=== PATIENT | male | born 1960 | race Caucasian/White ===

== ENCOUNTER → 2018-05-09 | Outpatient (CLI) | payer BC ==
[2018-05-09 08:34] LABS: HCT 50.9 % (39.0-53.0); HGB 16.2 gm/dL (13.0-17.5); MCH 32.3 pg (25.0-35.0); MCHC 31.9 g/dL (31.0-37.0); MCV 101.4 fL (80.0-100.0); Macrocytosis Slight; Mean Platelet Volume 7.2; Platelet Count 220 k/uL (150-450); RBC 5.02 m/uL (4.30-5.90); RDW 14.7 % (11.5-15.5); WBC 7.3 k/uL (3.8-10.6)
== END | disposition home or self-care (01) ==
LOC: LABPAT 08:02
PROVIDERS: ATTEND Anesthesiology
DX: Z01.812 Encounter for preprocedural laboratory examination (principal); K43.2 Incisional hernia without obstruction or gangrene
CPT/HCPCS: 36415; 85027

== ENCOUNTER 2018-05-10 21:01 | Emergency (ER) | payer BC ==
[2018-05-10 21:07] VITALS: RESP 18
--- NOTE | 2018-05-10 21:48 | ED ---
General Adult HPI - General Chief complaint: Urogenital Stated complaint: Abd pain Source: patient Mode of arrival: ambulatory Limitations: no limitations - History of Present Illness Initial comments: Dictation was produced using [employer] dictation software. please excuse any grammatical, word or spelling errors. Chief Complaint: 57-year-old male presents with urinary retention. History of Present Illness: Patient is a 57-year-old male with urinary retention. The last time he urinated was prior to surgery at this morning. Patient had umbilical hernia repair performed by Dr. Molina. After surgery he did not urinate. He was discharged and told to come to the emergency department if he does not void for 4-6 hours. Patient does have history of prostatic disease. He does have a urologist was Dr. Landry. It has any constitutional symptoms. The ROS documented in this emergency department record has been reviewed and confirmed by me. Those systems with pertinent positive or negative responses have been documented in the HPI. All other systems are other negative and/or noncontributory. - Related Data Home Medications Medication Instructions Recorded Confirmed ALPRAZolam [Xanax] 0.25 mg PO BID 08/11/14 05/10/18 Folic Acid 1 mg PO DAILY 08/11/14 05/10/18 Methotrexate Sodium [Methotrexate] 12.5 mg PO SCHNEIDER 09/12/14 05/10/18 Losartan [Cozaar] 25 mg PO HS 09/24/15 05/10/18 Atorvastatin [Lipitor] 20 mg PO HS 05/29/17 05/10/18 Tofacitinib Citrate [Xeljanz Xr] 11 mg PO DAILY 05/29/17 05/10/18 Metoprolol Tartrate 25 mg PO QAM 05/08/18 05/10/18 Tamsulosin [Flomax] 0.4 mg PO DAILY 05/08/18 05/10/18 Previous Rx's Medication Instructions Recorded Allopurinol [Zyloprim] 300 mg PO DAILY tab 08/16/14 Clopidogrel [Plavix] 75 mg PO DAILY #90 tab 02/03/16 Aspirin EC [Ecotrin Low Dose] 81 mg PO DAILY #30 tablet. 06/06/17 Hydrocodone/Acetaminophen [[place] 1 - 2 each PO Q4HR PRN #15 tab 05/10/18 5-325] Allergies Allergy/AdvReac Type Severity Reaction Status Date / Time No Known Allergies Allergy Verified 05/10/18 21:35 Review of Systems ROS Statement: Those systems with pertinent positive or pertinent negative responses have been documented in the HPI. ROS Other: All systems not noted in ROS Statement are negative. Past Medical History Past Medical History: Coronary Artery Disease (CAD), GERD/Reflux, Myocardial Infarction ([place]), Rheumatoid Arthritis ([place]), Sleep Apnea/CPAP/BIPAP, Vascular Disorder Additional Past Medical History / Comment(s): incisional hernia,gout, [place] x 3, varicose veins Last Myocardial Infarction Date:: 09/2014 History of Any Multi-Drug Resistant Organisms: None Reported Past Surgical History: Appendectomy, Bowel Resection, Coronary Bypass/CABG, Heart Catheterization, Hernia Repair Additional Past Surgical History / Comment(s): ABD. AORTOGRAM WITH MACKENZIE RUNOFF 01/07/16,Bilateral eye surgery for lazy eyes, CABG 08/2014 -4 vessel,02-01-17 stent to rt sfa Past Anesthesia/Blood Transfusion Reactions: Motion Sickness Additional Past Anesthesia/Blood Transfusion Reaction / Comment(s): unknown if had blood transfusion in past Past Psychological History: Anxiety Smoking Status: Former smoker - Past Family History Sister(s) Family Medical History: Cancer Additional Family Medical History / Comment(s): Patient has one sister with history of colon cancer Father Family Medical History: Cancer Additional Family Medical History / Comment(s): Father dad at age 73 with throat CA, heart problems, smoked and drank. Mother Family Medical History: Dementia Additional Family Medical History / Comment(s): Mother is alive at age 84 with history of atrial fibrillation, coronary artery disease, dementia, hypertension. Brother(s) Family Medical History: Pulmonary Embolus Additional Family Medical History / Comment(s): Patient has 2 brothers and one from Marfan's and one has diabetes. General Exam - General Exam Comments Initial Comments: PHYSICAL EXAM: General Impression: Alert and oriented x3, not in acute distress HEENT: Normocephalic atraumatic, extra-ocular movements intact, pupils equal and reactive to light bilaterally, mucous membranes moist. Cardiovascular: Heart regular rate and rhythm, S1&S2 audible, no murmurs, rubs or gallops Chest: Lungs clear to auscultation bilaterally, no rhonchi, no wheeze, no rales Abdomen: Bowel sounds present, abdomen soft, non-tender, non-distended, no organomegaly, tender in place, surgical sites clean dry and intact, suprapubic fullness Musculoskeletal: Pulses present and equal in all extremities, no peripheral edema Motor: Power 5/5 bilaterally, no focal deficits noted Neurological: CN II-XII grossly intact, no focal motor or sensory deficits noted Skin: Intact with no visualized rashes Psych: Normal affect and mood Limitations: no limitations Course Vital Signs 05/10/18 21:03 Temperature 98.9 F Pulse Rate 50 L Respiratory 18 Rate Blood Pressure 134/78 O2 Sat by Pulse 97 Oximetry Medical Decision Making - Medical Decision Making ED course: 57-year-old male presents with urinary retention postoperatively. Vital signs upon arrival are within acceptable limits. Bladder scan was performed showing 550 mL of urine. [place] catheter was placed without complications. Patient be discharged with outpatient referral to his urologist. Urine sent for culture and urinalysis. Disposition Clinical Impression: Urinary retention Disposition: HOME SELF-CARE Instructions: Urinary Retention in Men (ED) Is patient prescribed a controlled substance at d/c from ED?: No Referrals: Jean Claude Hernández MD [Primary Care Provider] - 1-2 days Quinton Holguin MD [STAFF PHYSICIAN] - 1-2 days Time of Disposition: 21:48
[2018-05-10 21:59] LABS: Appearance,Urine Clear (Clear); Bilirubin,Urine Negative (Negative); Blood,Urine Negative (Negative); Color,Urine Yellow; Glucose,Urine (UA) Negative (Negative); Ketones,Urine Negative (Negative); Leukocyte Esterase,Urine Negative (Negative); Nitrite,Urine Negative (Negative); Protein,Urine Negative (Negative); Specific Gravity,Urine 1.013 (1.001-1.035); Urobilinogen,Urine <2.0 mg/dL (<2.0)
[2018-05-10 22:00] VITALS: BP 130/78; PULSE 60; TEMP 98
== END 2018-05-10 22:01 | disposition home or self-care (01) ==
LOC: EC 21:01
DX: R33.9 Retention of urine, unspecified (principal); N99.89 Other postprocedural complications and disorders of genitourinary system; I25.10 Atherosclerotic heart disease of native coronary artery without angina pectoris; M06.9 Rheumatoid arthritis, unspecified; G47.30 Sleep apnea, unspecified; F41.9 Anxiety disorder, unspecified; I25.2 Old myocardial infarction; Z87.891 Personal history of nicotine dependence; Z79.899 Other long term (current) drug therapy; Z99.89 Dependence on other enabling machines and devices; Z90.49 Acquired absence of other specified parts of digestive tract; Z95.1 Presence of aortocoronary bypass graft
CPT/HCPCS: 51702; 81003; 87086; 99284

== ENCOUNTER → 2018-05-10 | Day surgery (SDC) | payer BC, MEDICARE ==
[2018-05-08 10:25] VITALS: BMI 31.2
[~2018-05-10] MED LIST: BUPIVACAIN-EPI 0.25%-1:200,000 30 ML VIAL SQ ONE; DEXAMETHASONE SOD PHOSPHATE 10 MG/ML 1 ML VIAL IV ONE; GLYCOPYRROLATE 0.2 MG/ML 2 ML VIAL ONE; HEPARIN SODIUM,PORCINE 5,000 UNIT/ML 1 ML VIAL SQ ONE; HYDROcodone/APAP 5-325MG 1 EACH TAB PO ONE; HYDROcodone/APAP 5-325MG 1 EACH TAB PO PRN; HYDROmorphone (PF) 1 MG/ML ONE; HYDROmorphone 1 MG/ML 1 ML SYRINGE IVP PRN; KETOROLAC 30 MG/ML 1 ML VIAL ONE; LACTATED RINGERS 1,000 ML IV ONE; LACTATED RINGERS 1,000 ML IV SCH; LIDOCAINE 1% 20 ML VIAL (10MG/ML) FOR IV START INTRADERMA ONE; LIDOCAINE 1% INJ 10MG/ML (20 ML MDV) ONE; MIDAZOLAM 2 MG/2 ML VIAL IV PRN; MIDAZOLAM 2 MG/2 ML VIAL ONE; NALOXONE 0.4 MG/ML 1 ML VIAL IV PRN; NEOSTIGMINE 1 MG/ML 10 ML VIAL ONE; ONDANSETRON 4 MG/2 ML VIAL IVP ONE; PROPOFOL 10 MG/ML 20 ML VIAL IV ONE; ROCURONIUM BROMIDE 10 MG/ML 10 ML VIAL IV ONE; SCOPOLAMINE 1.5MG/72HR PATCH TRANSDERM ONE; SUCCINYLCHOLINE CHLORIDE 100 MG/5 ML SYR IV ONE; TAMSULOSIN 0.4 MG CAP.ER.24H PO STA; ceFAZolin IN SWFI 2 GM/20 ML SYRINGE IVP ONE; fentaNYL (PF) 50 MCG/ML 2 ML AMP ONE
[2018-05-10 10:43] LABS: Potassium 4.3 mmol/L (3.5-5.1)
--- NOTE | 2018-05-10 12:42 | P.GSHP ---
History of Present Illness H&P Date: 05/10/18 Chief Complaint: Incisional hernia 57-year-old male known to our service. Patient has a hernia present at the umbilicus and also in the infra umbilical location. Complaining of pain in that area. No nausea or vomiting. No change in bowel habits. Past Medical History Past Medical History: Coronary Artery Disease (CAD), GERD/Reflux, Myocardial Infarction ([place]), Rheumatoid Arthritis ([place]), Sleep Apnea/CPAP/BIPAP, Vascular Disorder Additional Past Medical History / Comment(s): incisional hernia,gout, [place] x 3, varicose veins, SOB on exertion,pad,small bowel "choked" r/t scar tissue 2016, uses cpap Last Myocardial Infarction Date:: 09/2014 History of Any Multi-Drug Resistant Organisms: None Reported Past Surgical History: Appendectomy, Bowel Resection, Coronary Bypass/CABG, Heart Catheterization Additional Past Surgical History / Comment(s): ABD. AORTOGRAM WITH MACKENZIE RUNOFF 01/07/16,Bilateral eye surgery for lazy eyes, CABG 08/2014 -4 vessel,02-01-17 stent to rt sfa Past Anesthesia/Blood Transfusion Reactions: Motion Sickness Additional Past Anesthesia/Blood Transfusion Reaction / Comment(s): unknown if had blood transfusion in past Smoking Status: Former smoker - Past Family History Sister(s) Family Medical History: Cancer Additional Family Medical History / Comment(s): Patient has one sister with history of colon cancer Father Family Medical History: Cancer Additional Family Medical History / Comment(s): Father dad at age 73 with throat CA, heart problems, smoked and drank. Mother Family Medical History: Dementia Additional Family Medical History / Comment(s): Mother is alive at age 84 with history of atrial fibrillation, coronary artery disease, dementia, hypertension. Brother(s) Family Medical History: Pulmonary Embolus Additional Family Medical History / Comment(s): Patient has 2 brothers and one from Marfan's and one has diabetes. Medications and Allergies Home Medications Medication Instructions Recorded Confirmed Type ALPRAZolam [Xanax] 0.25 mg PO BID 08/11/14 05/10/18 History Folic Acid 1 mg PO DAILY 08/11/14 05/10/18 History Allopurinol [Zyloprim] 300 mg PO DAILY tab 08/16/14 05/10/18 Rx Methotrexate Sodium [Methotrexate] 12.5 mg PO SCHNEIDER 09/12/14 05/10/18 History Losartan [Cozaar] 25 mg PO HS 09/24/15 05/10/18 History Clopidogrel [Plavix] 75 mg PO DAILY #90 tab 02/03/16 05/10/18 Rx Atorvastatin [Lipitor] 40 mg PO HS 05/29/17 05/10/18 History Tofacitinib Citrate [Xeljanz Xr] 11 mg PO DAILY 05/29/17 05/10/18 History Aspirin EC [Ecotrin Low Dose] 81 mg PO DAILY #30 tablet. 06/06/17 05/10/18 Rx Metoprolol Tartrate 25 mg PO QAM 05/08/18 05/10/18 History Tamsulosin [Flomax] 0.4 mg PO DAILY 05/08/18 05/10/18 History Allergies Allergy/AdvReac Type Severity Reaction Status Date / Time No Known Allergies Allergy Verified 05/10/18 10:11 Surgical - Exam Vital Signs Temp Pulse Resp BP Pulse Ox 96.9 F L 50 L 16 121/69 96 05/10/18 10:20 05/10/18 10:20 05/10/18 10:20 05/10/18 10:20 05/10/18 10:20 Multiple fascial defects along the midline incision. Mildly tender. Reducible. Results - Labs 05/10/18 10:20 Abnormal Lab Results - Last 24 Hours (Table) 05/10/18 Range/Units 10:20 Chloride 109 H (98-107) mmol/L Diabetes panel 05/10/18 Range/Units 10:20 Sodium 142 (137-145) mmol/L Potassium 4.3 (3.5-5.1) mmol/L Chloride 109 H (98-107) mmol/L Carbon Dioxide 27 (22-30) mmol/L Pituitary panel 05/10/18 Range/Units 10:20 Sodium 142 (137-145) mmol/L Potassium 4.3 (3.5-5.1) mmol/L Chloride 109 H (98-107) mmol/L Carbon Dioxide 27 (22-30) mmol/L Adrenal panel 05/10/18 Range/Units 10:20 Sodium 142 (137-145) mmol/L Potassium 4.3 (3.5-5.1) mmol/L Chloride 109 H (98-107) mmol/L Carbon Dioxide 27 (22-30) mmol/L Assessment and Plan (1) Incisional hernia Narrative/Plan: Will proceed with laparoscopic repair incisional hernia with mesh. Possible open procedure. Risks of bleeding, infection, recurrence, bladder and bowel injury, numbness, nerve injury, conversion to an open procedure were discussed with the patient. The patient understands and wishes to proceed. Current Visit: Yes Status: Acute Code(s): K43.2 - INCISIONAL HERNIA WITHOUT OBSTRUCTION OR GANGRENE SNOMED Code(s): 853830092
[2018-05-10 15:10] VITALS: TEMP 98.1
[2018-05-10 15:11] VITALS: RESP 16
--- NOTE | 2018-05-10 15:35 | P.OP ---
Date of Procedure: 05/10/18 Procedure(s) Performed: PREOPERATIVE DIAGNOSIS: Reducible incisional hernia POSTOPERATIVE DIAGNOSIS: Same PROCEDURE: Laparoscopic repair incisional hernia with [place] robotic assistance with mesh, laparoscopic extensive lysis of adhesions SURGEON: Tracy EBL: Al Arreguin ANESTHESIA: Gen. COMPLICATIONS: None OPERATIVE PROCEDURE: Patient was placed on the operating room table in the supine position. Patient was then placed under general anesthesia. The abdomen was prepped and draped in usual sterile fashion. A 5 mm optical trocar was used to enter the abdominal cavity in the left subcostal location and laterally. Insufflation took place fully to 15 mm of mercury. At that point a 12 mm trocar was placed laterally in the mid abdomen. An 8 mm trocar was placed in the left lower quadrant. The initial 5 was then switched to an 8 mm trocar as well. All of these were placed under direct visualization. The trochars were placed so that the neutral center of the trocar was within the abdominal wall. The da Fanta robot was then docked after placing the patient in a slight right decubitus position. I then left the bedside and moved to the da Fanta console. The patient's hernia was inspected. In this particular case the patient had extensive adhesions between the small bowel, omentum, and the abdominal wall. Painstaking extensive lysis of adhesions took place using the laparoscopic aide. No evidence of iatrogenic serosal tears were seen during this dissection. Once the fascia was visualized it was noted that the patient had a proximally 4 separate defects. There was a small less than 1 cm defect at the most superior extent. Just inferior to that was a defect that measured 3 x 4 cm that was present in the supraumbilical location. Inferior to that a small 1-27 m defect was seen and inferior to that a 3 x 3 7 m defect was seen. These were each closed using #1 strata fix sutures. Once I was comfortable that the fascial defects were appropriately closed a 6 x 4 ventral light mesh was advanced into the perineal cavity. This was sutured to the abdominal wall using a running 20V lock suture circumferentially. The Teale via lock was also carried into the central aspect of the mesh to avoid any gapping there. This provided excellent coverage of our fascial closure. We then switched to a traditional laparoscopic approach. The 4 needles were removed at that point. The defect at the 12 mm trocar site was closed using an 0 Vicryl suture and the Tony Toro technique. The skin at all 3 sites were closed using interrupted 4-0 Monocryl sutures. Skin glue was then applied. DISPOSITION: Stable to recovery room
[2018-05-10 16:31] VITALS: BP 127/63; PULSE 82
== END ==
LOC: OR 09:41
PROVIDERS: ATTEND Surgery
DX: K43.2 Incisional hernia without obstruction or gangrene (principal); K66.0 Peritoneal adhesions (postprocedural) (postinfection); K21.9 Gastro-esophageal reflux disease without esophagitis; I25.10 Atherosclerotic heart disease of native coronary artery without angina pectoris; Z87.891 Personal history of nicotine dependence; I25.2 Old myocardial infarction; M06.9 Rheumatoid arthritis, unspecified; G47.33 Obstructive sleep apnea (adult) (pediatric); Z99.89 Dependence on other enabling machines and devices; M10.9 Gout, unspecified; F41.9 Anxiety disorder, unspecified; I83.90 Asymptomatic varicose veins of unspecified lower extremity; Z95.1 Presence of aortocoronary bypass graft; Z90.49 Acquired absence of other specified parts of digestive tract; Z79.02 Long term (current) use of antithrombotics/antiplatelets; Z79.82 Long term (current) use of aspirin; Z79.891 Long term (current) use of opiate analgesic; Z79.899 Other long term (current) drug therapy; Z80.0 Family history of malignant neoplasm of digestive organs
CPT/HCPCS: 49654; S2900; 51702; 80051; 81003; 87086; 93005; 99284

== ENCOUNTER 2022-06-28 06:54 | Inpatient (IN) | payer BC ==
[2022-06-28] MEDS ORDERED: SODIUM CHLORIDE 0.9% 1,000 ML IV STA (07:12)
--- NOTE | 2022-06-28 07:16 | ED ---
Abdominal Pain HPI - General Chief Complaint: Abdominal Pain Stated Complaint: Abdominal pain Time Seen by Provider: 06/28/22 07:02 Source: patient, RN notes reviewed Mode of arrival: ambulatory Limitations: no limitations - History of Present Illness Initial Comments: 61-year-old male presents emergency Department chief complaint of abdominal pain. Patient states been having some on-and-off abdominal pain for several weeks for overnight he states she's had worsening pain states that he's had a history of bowel obstruction feels very similar. Patient states he took her [place] prior to her leaving states it is helping his pain. Patient states that he did have bowel movement yesterday but states is not helping this morning. He has been slight nausea without vomiting no fevers or chills no chest pain states pain is worse in the left side of his abdomen he's had prior appendectomy patient's prior surgeons Dr. jay - Related Data Home Medications Medication Instructions Recorded Confirmed ALPRAZolam [Xanax] 0.25 mg PO BID 08/11/14 05/10/18 Folic Acid 1 mg PO DAILY 08/11/14 05/10/18 metHOTREXate sodium [Methotrexate] 12.5 mg PO SCHNEIDER 09/12/14 05/10/18 Losartan [Cozaar] 25 mg PO HS 09/24/15 05/10/18 Atorvastatin [Lipitor] 20 mg PO HS 05/29/17 05/10/18 Tofacitinib Citrate [Xeljanz Xr] 11 mg PO DAILY 05/29/17 05/10/18 Metoprolol Tartrate 25 mg PO QAM 05/08/18 05/10/18 Tamsulosin [Flomax] 0.4 mg PO DAILY 05/08/18 05/10/18 Previous Rx's Medication Instructions Recorded allopurinoL [Zyloprim] 300 mg PO DAILY tab 08/16/14 Clopidogrel [Plavix] 75 mg PO DAILY #90 tab 02/03/16 Aspirin EC [Ecotrin Low Dose] 81 mg PO DAILY #30 tablet. 06/06/17 Hydrocodone/Acetaminophen [[place] 1 - 2 each PO Q4HR PRN #15 tab 05/10/18 5-325] Allergies Allergy/AdvReac Type Severity Reaction Status Date / Time No Known Allergies Allergy Verified 06/28/22 06:57 Review of Systems ROS Statement: Those systems with pertinent positive or pertinent negative responses have been documented in the HPI. ROS Other: All systems not noted in ROS Statement are negative. Past Medical History Past Medical History: Coronary Artery Disease (CAD), GERD/Reflux, Myocardial Infarction ([place]), Rheumatoid Arthritis ([place]), Sleep Apnea/CPAP/BIPAP, Vascular Disorder Additional Past Medical History / Comment(s): incisional hernia,gout, [place] x 3, varicose veins Last Myocardial Infarction Date:: 09/2014 History of Any Multi-Drug Resistant Organisms: None Reported Past Surgical History: Appendectomy, Bowel Resection, Coronary Bypass/CABG, H eart Catheterization, Hernia Repair Additional Past Surgical History / Comment(s): ABD. AORTOGRAM WITH MACKENZIE RUNOFF 01/07/16,Bilateral eye surgery for lazy eyes, CABG 08/2014 -4 vessel,02-01-17 stent to rt sfa Past Anesthesia/Blood Transfusion Reactions: Motion Sickness Additional Past Anesthesia/Blood Transfusion Reaction / Comment(s): unknown if had blood transfusion in past Past Psychological History: Anxiety Smoking Status: Never smoker Past Alcohol Use History: Occasional Past Drug Use History: None Reported - Past Family History Sister(s) Family Medical History: Cancer Additional Family Medical History / Comment(s): Patient has one sister with history of colon cancer Father Family Medical History: Cancer Additional Family Medical History / Comment(s): Father dad at age 73 with throat CA, heart problems, smoked and drank. Mother Family Medical History: Dementia Additional Family Medical History / Comment(s): Mother is alive at age 84 with history of atrial fibrillation, coronary artery disease, dementia, hypertension. Brother(s) Family Medical History: Pulmonary Embolus Additional Family Medical History / Comment(s): Patient has 2 brothers and one from Marfan's and one has diabetes. General Exam Limitations: no limitations General appearance: alert, in no apparent distress Head exam: Present: atraumatic, normocephalic, normal inspection Eye exam: Present: normal appearance, PERRL, EOMI. Absent: scleral icterus, conjunctival injection, periorbital swelling ENT exam: Present: normal exam, normal oropharynx, mucous membranes moist Neck exam: Present: normal inspection, full ROM. Absent: tenderness, meningismus, lymphadenopathy Respiratory exam: Present: normal lung sounds bilaterally. Absent: respiratory distress, wheezes, rales, rhonchi, stridor Cardiovascular Exam: Present: regular rate, normal rhythm, normal heart sounds. Absent: systolic murmur, diastolic murmur, rubs, gallop, clicks GI/Abdominal exam: Present: soft, tenderness (Moderate left-sided), normal bowel sounds. Absent: distended, guarding, rebound, rigid Back exam: Absent: CVA tenderness (R), CVA tenderness (L) Neurological exam: Present: alert Course Vital Signs 06/28/22 06:58 Temperature 98 F Pulse Rate 63 Respiratory 18 Rate Blood Pressure 121/78 O2 Sat by Pulse 98 Oximetry Medical Decision Making - Medical Decision Making 61-year-old male present emergency from for abdominal pain patient's CT interpreted by me and radiology patient has small bowel obstruction at suture line patient's case discussed with Dr. Adorno covering for Dr. Jay. Patient will have NG tube placed, will be admitted for further treatment and management - Lab Data Result diagrams: 06/28/22 07:28 06/28/22 07:28 Lab Results 06/28/22 06/28/22 06/28/22 Range/Units 07:28 07:28 07:28 WBC 7.8 (3.8-10.6) k/uL RBC 4.38 (4.30-5.90) m/uL Hgb 14.2 (13.0-17.5) gm/dL Hct 41.4 (39.0-53.0) % MCV 94.5 (80.0-100.0) fL MCH 32.5 (25.0-35.0) pg MCHC 34.4 (31.0-37.0) g/dL RDW 12.7 (11.5-15.5) % Plt Count 157 (150-450) k/uL MPV 8.2 Neutrophils % 80 % Lymphocytes % 11 % Monocytes % 6 % Eosinophils % 1 % Basophils % 0 % Neutrophils # 6.3 (1.3-7.7) k/uL Lymphocytes # 0.9 L (1.0-4.8) k/uL Monocytes # 0.4 (0-1.0) k/uL Eosinophils # 0.1 (0-0.7) k/uL Basophils # 0.0 (0-0.2) k/uL Sodium 139 (137-145) mmol/L Potassium 4.4 (3.5-5.1) mmol/L Chloride 108 H (98-107) mmol/L Carbon Dioxide 25 (22-30) mmol/L Anion Gap 6 mmol/L BUN 17 (9-20) mg/dL Creatinine 0.84 (0.66-1.25) mg/dL Est GFR (CKD-EPI)AfAm >90 (>60 ml/min/1.73 sqM) Est GFR (CKD-EPI)NonAf >90 (>60 ml/min/1.73 sqM) Glucose 108 H (74-99) mg/dL Plasma Lactic Acid Zak (0.7-2.0) mmol/L Calcium 8.8 (8.4-10.2) mg/dL Total Bilirubin 0.4 (0.2-1.3) mg/dL AST 30 (17-59) U/L ALT 27 (4-49) U/L Alkaline Phosphatase 46 (38-126) U/L Total Protein 6.9 (6.3-8.2) g/dL Albumin 4.1 (3.5-5.0) g/dL Lipase 207 (23-300) U/L Urine Color Yellow Urine Appearance Clear (Clear) Urine pH 6.0 (5.0-8.0) Ur Specific [place] 1.014 (1.001-1.035) Urine Protein Negative (Negative) Urine Glucose (UA) Negative (Negative) Urine Ketones Negative (Negative) Urine Blood Negative (Negative) Urine Nitrite Negative (Negative) Urine Bilirubin Negative (Negative) Urine Urobilinogen <2.0 (<2.0) mg/dL Ur Leukocyte Esterase Negative (Negative) 06/28/22 Range/Units 07:28 WBC (3.8-10.6) k/uL RBC (4.30-5.90) m/uL Hgb (13.0-17.5) gm/dL Hct (39.0-53.0) % MCV (80.0-100.0) fL MCH (25.0-35.0) pg MCHC (31.0-37.0) g/dL RDW (11.5-15.5) % Plt Count (150-450) k/uL MPV Neutrophils % % Lymphocytes % % Monocytes % % Eosinophils % % Basophils % % Neutrophils # (1.3-7.7) k/uL Lymphocytes # (1.0-4.8) k/uL Monocytes # (0-1.0) k/uL Eosinophils # (0-0.7) k/uL Basophils # (0-0.2) k/uL Sodium (137-145) mmol/L Potassium (3.5-5.1) mmol/L Chloride (98-107) mmol/L Carbon Dioxide (22-30) mmol/L Anion Gap mmol/L BUN (9-20) mg/dL Creatinine (0.66-1.25) mg/dL Est GFR (CKD-EPI)AfAm (>60 ml/min/1.73 sqM) Est GFR (CKD-EPI)NonAf (>60 ml/min/1.73 sqM) Glucose (74-99) mg/dL Plasma Lactic Acid Zak 0.9 (0.7-2.0) mmol/L Calcium (8.4-10.2) mg/dL Total Bilirubin (0.2-1.3) mg/dL AST (17-59) U/L ALT (4-49) U/L Alkaline Phosphatase (38-126) U/L Total Protein (6.3-8.2) g/dL Albumin (3.5-5.0) g/dL Lipase (23-300) U/L Urine Color Urine Appearance (Clear) Urine pH (5.0-8.0) Ur Specific [place] (1.001-1.035) Urine Protein (Negative) Urine Glucose (UA) (Negative) Urine Ketones (Negative) Urine Blood (Negative) Urine Nitrite (Negative) Urine Bilirubin (Negative) Urine Urobilinogen (<2.0) mg/dL Ur Leukocyte Esterase (Negative) Disposition Clinical Impression: Small bowel obstruction Disposition: ADMITTED IP TO THIS [facility] Condition: Fair Referrals: Jean Claude Hernández MD [Primary Care Provider] - 1-2 days Time of Disposition: 08:35
[2022-06-28 07:44] LABS: Basophils % (A) 0 %; Eosinophils # (A) 0.1 k/uL (0-0.7); Eosinophils % (A) 1 %; HCT 41.4 % (39.0-53.0); HGB 14.2 gm/dL (13.0-17.5); Lymphocytes # (A) 0.9 k/uL (1.0-4.8); Lymphocytes % (A) 11 %; MCH 32.5 pg (25.0-35.0); MCHC 34.4 g/dL (31.0-37.0); MCV 94.5 fL (80.0-100.0); Mean Platelet Volume 8.2; Monocytes # (A) 0.4 k/uL (0-1.0); Monocytes % (A) 6 %; Neutrophils # (A) 6.3 k/uL (1.3-7.7); Neutrophils % (A) 80 %; Platelet Count 157 k/uL (150-450); RBC 4.38 m/uL (4.30-5.90); RDW 12.7 % (11.5-15.5); WBC 7.8 k/uL (3.8-10.6)
[2022-06-28 07:46] LABS: Appearance,Urine Clear (Clear); Bilirubin,Urine Negative (Negative); Blood,Urine Negative (Negative); Color,Urine Yellow; Glucose,Urine (UA) Negative (Negative); Ketones,Urine Negative (Negative); Leukocyte Esterase,Urine Negative (Negative); Nitrite,Urine Negative (Negative); Protein,Urine Negative (Negative); Specific Gravity,Urine 1.014 (1.001-1.035); Urobilinogen,Urine <2.0 mg/dL (<2.0)
[2022-06-28 07:55] LABS: ALT 27 U/L (4-49); AST 30 U/L (17-59); African American GFR (CKD) >90 (>60 ml/min/1.73 sqM); Albumin 4.1 g/dL (3.5-5.0); Alkaline Phosphatase 46 U/L (38-126); Anion Gap 6 mmol/L; Blood Urea Nitrogen 17 mg/dL (9-20); Calcium 8.8 mg/dL (8.4-10.2); Carbon Dioxide 25 mmol/L (22-30); Chloride 108 mmol/L (98-107); Glucose 108 mg/dL (74-99); Lipase 207 U/L (23-300); Non-African American GFR(CKD) >90 (>60 ml/min/1.73 sqM); Potassium 4.4 mmol/L (3.5-5.1); Sodium 139 mmol/L (137-145); Total Bilirubin 0.4 mg/dL (0.2-1.3); Total Protein 6.9 g/dL (6.3-8.2)
--- NOTE | 2022-06-28 08:14 | CT ---
EXAMINATION TYPE: CT abdomen pelvis wo con DATE OF EXAM: 06/28/2022 COMPARISON: 05/29/2017 HISTORY: Lt sided pain, history of colon resection CT DLP: 949.5 mGycm Examination of the solid and hollow viscera is limited given the lack of contrast. FINDINGS: LUNG BASES: No evidence for nodule. No evidence for infiltrate. LIVER/GB: The gallbladder is unremarkable. No space-occupying hepatic lesion. PANCREAS: No pancreatic mass identified. No inflammatory process seen. SPLEEN: No evidence for splenomegaly. No intrasplenic lesions seen. ADRENALS: No adrenal nodules identified. No evidence for thickening. KIDNEYS: No evidence for renal mass. No nephrolithiasis. No hydronephrosis. BOWEL: Dilated segments of small bowel left lower quadrant with a fecalized segment measuring up to a pproximately 6.4 cm. Suture line is noted at the site of obstruction. Lymph nodes: No evidence for adenopathy greater than 1 cm. Abdominal aorta: Atheromatous changes seen. No evidence for aneurysm. Genital organs: No significant abnormality. Other: No significant abnormality. IMPRESSION: Dilated segments of small bowel left lower quadrant with a fecalized segment measuring up to approxim ately 6.4 cm. Suture line is noted at the site of obstruction.
[2022-06-28] MEDS ORDERED: NALOXONE 0.4 MG/ML 1 ML VIAL IV PRN ×2 (08:47→17:19)
[2022-06-28] MEDS ORDERED: ONDANSETRON 4 MG/2 ML VIAL IVP PRN ×2 (08:47→17:19)
[2022-06-28] MEDS: HYDROmorphone 0.5 MG/0.5 ML SYRINGE IVP PRN ×3 (09:01→15:03)
[2022-06-28] MEDS: SODIUM CHLORIDE 0.9% 1,000 ML IV SCH ×2 (09:02→22:50)
--- NOTE | 2022-06-28 09:19 | P.GSHP ---
History of Present Illness H&P Date: 06/28/22 Chief Complaint: Abdominal pain nausea This is a 61-year-old male who describes a 1 month progressive of abdominal pain. Patient developed severe abdominal pain and nausea this morning which precipitated him coming to the emergency room. Patient is a previous history of small bowel resection performed approximately 5 years ago. Patient's CAT scan today shows evidence of a small bowel obstruction at the small bowel anastomosis. Past Medical History Past Medical History: Coronary Artery Disease (CAD), GERD/Reflux, Myocardial Inf arction ([place]), Rheumatoid Arthritis (RA), Sleep Apnea/CPAP/BIPAP, Vascular Disorder Additional Past Medical History / Comment(s): incisional hernia,gout, [place] x 3, varicose veins Last Myocardial Infarction Date:: 09/2014 History of Any Multi-Drug Resistant Organisms: None Reported Past Surgical History: Appendectomy, Bowel Resection, Coronary Bypass/CABG, Heart Catheterization, Hernia Repair Additional Past Surgical History / Comment(s): ABD. AORTOGRAM WITH MACKENZIE RUNOFF 01/07/16,Bilateral eye surgery for lazy eyes, CABG 08/2014 -4 vessel,02-01-17 stent to rt sfa Past Anesthesia/Blood Transfusion Reactions: Motion Sickness Additional Past Anesthesia/Blood Transfusion Reaction / Comment(s): unknown if had blood transfusion in past Past Psychological History: Anxiety Smoking Status: Never smoker Past Alcohol Use History: Occasional Past Drug Use History: None Reported - Past Family History Sister(s) Family Medical History: Cancer Additional Family Medical History / Comment(s): Patient has one sister with history of colon cancer Father Family Medical History: Cancer Additional Family Medical History / Comment(s): Father dad at age 73 with throat CA, heart problems, smoked and drank. Mother Family Medical History: Dementia Additional Family Medical History / Comment(s): Mother is alive at age 84 with history of atrial fibrillation, coronary artery disease, dementia, hypertension. Brother(s) Family Medical History: Pulmonary Embolus Additional Family Medical History / Comment(s): Patient has 2 brothers and one from Marfan's and one has diabetes. Medications and Allergies Home Medications Medication Instructions Recorded Confirmed Type ALPRAZolam [Xanax] 0.25 mg PO BID 08/11/14 05/10/18 History Folic Acid 1 mg PO DAILY 08/11/14 05/10/18 History allopurinoL [Zyloprim] 300 mg PO DAILY tab 08/16/14 05/10/18 Rx metHOTREXate sodium [Methotrexate] 12.5 mg PO SCHNEIDER 09/12/14 05/10/18 History Losartan [Cozaar] 25 mg PO HS 09/24/15 05/10/18 History Clopidogrel [Plavix] 75 mg PO DAILY #90 tab 02/03/16 05/10/18 Rx Atorvastatin [Lipitor] 20 mg PO HS 05/29/17 05/10/18 History Tofacitinib Citrate [Xeljanz Xr] 11 mg PO DAILY 05/29/17 05/10/18 History Aspirin EC [Ecotrin Low Dose] 81 mg PO DAILY #30 tablet.dr 06/06/17 05/10/18 Rx Metoprolol Tartrate 25 mg PO QAM 05/08/18 05/10/18 History Tamsulosin [Flomax] 0.4 mg PO DAILY 05/08/18 05/10/18 History Hydrocodone/Acetaminophen [[place] 1 - 2 each PO Q4HR PRN #15 tab 05/10/18 Rx 5-325] Allergies Allergy/AdvReac Type Severity Reaction Status Date / Time No Known Allergies Allergy Verified 06/28/22 06:57 Surgical - Exam Vital Signs Temp Pulse Resp BP Pulse Ox 98 F 63 18 121/78 98 06/28/22 06:58 06/28/22 06:58 06/28/22 06:58 06/28/22 06:58 06/28/22 06:58 - General well developed, moderate distress - Eyes PERRL - ENT normal pinna - Neck no masses - Respiratory normal expansion - Cardiovascular Rhythm: regular - Abdomen The abdomen is distended and diffusely tender. Abdomen: tender, distended Results - Labs 06/28/22 07:28 06/28/22 07:28 Abnormal Lab Results - Last 24 Hours (Table) 06/28/22 06/28/22 Range/Units 07:28 07:28 Lymphocytes # 0.9 L (1.0-4.8) k/uL Chloride 108 H (98-107) mmol/L Glucose 108 H (74-99) mg/dL Diabetes panel 06/28/22 Range/Units 07:28 Sodium 139 (137-145) mmol/L Potassium 4.4 (3.5-5.1) mmol/L Chloride 108 H (98-107) mmol/L Carbon Dioxide 25 (22-30) mmol/L BUN 17 (9-20) mg/dL Creatinine 0.84 (0.66-1.25) mg/dL Glucose 108 H (74-99) mg/dL Calcium 8.8 (8.4-10.2) mg/dL AST 30 (17-59) U/L ALT 27 (4-49) U/L Alkaline Phosphatase 46 (38-126) U/L Total Protein 6.9 (6.3-8.2) g/dL Albumin 4.1 (3.5-5.0) g/dL Calcium panel 06/28/22 Range/Units 07:28 Calcium 8.8 (8.4-10.2) mg/dL Albumin 4.1 (3.5-5.0) g/dL Pituitary panel 06/28/22 Range/Units 07:28 Sodium 139 (137-145) mmol/L Potassium 4.4 (3.5-5.1) mmol/L Chloride 108 H (98-107) mmol/L Carbon Dioxide 25 (22-30) mmol/L BUN 17 (9-20) mg/dL Creatinine 0.84 (0.66-1.25) mg/dL Glucose 108 H (74-99) mg/dL Calcium 8.8 (8.4-10.2) mg/dL Adrenal panel 06/28/22 Range/Units 07:28 Sodium 139 (137-145) mmol/L Potassium 4.4 (3.5-5.1) mmol/L Chloride 108 H (98-107) mmol/L Carbon Dioxide 25 (22-30) mmol/L BUN 17 (9-20) mg/dL Creatinine 0.84 (0.66-1.25) mg/dL Glucose 108 H (74-99) mg/dL Calcium 8.8 (8.4-10.2) mg/dL Total Bilirubin 0.4 (0.2-1.3) mg/dL AST 30 (17-59) U/L ALT 27 (4-49) U/L Alkaline Phosphatase 46 (38-126) U/L Total Protein 6.9 (6.3-8.2) g/dL Albumin 4.1 (3.5-5.0) g/dL - Imaging CT scan - abdomen: report reviewed (Small bowel obstruction with obstruction located at the anastomotic suture line) Assessment and Plan Assessment: Spinal obstruction. Patient undergo exploratory laparotomy and possible small bowel resection today. He will have a nasogastric tube placed in the emergency room
--- NOTE | 2022-06-28 10:52 | XR ---
EXAMINATION TYPE: XR chest 1V confirm line plcwv DATE OF EXAM: 06/28/2022 COMPARISON: 09/24/2015 INDICATION: Line placement TECHNIQUE: Single frontal view of the epigastric region was obtained FINDINGS: Nasogastric tube is been placed, this appears to be curled within the left upper quadrant of the abdo men within the fundus of the stomach region. Sternotomy wires are present. The lung bases appear clear. Nonspecific bowel gas within the upper abd omen. No free air is identified. IMPRESSION: 1. Nasogastric tube tip in the left upper quadrant of the abdomen.
[2022-06-28 13:25] LABS: INR 0.9 (<1.2); Partial Thromboplastin Time 24.2 sec (22.0-30.0); Prothrombin Time 10.1 sec (9.0-12.0)
[2022-06-28] MEDS ORDERED: IV FLUID CONTINUATION 600 ML IV ONE (15:29)
[2022-06-28] MEDS ORDERED: DEXAMETHASONE SOD PHOSPHATE 4 MG/ML 1 ML VIAL IVP ONE (15:36)
[2022-06-28] MEDS ORDERED: ONDANSETRON 4 MG/2 ML VIAL IVP ONE (15:37)
--- NOTE | 2022-06-28 15:40 | P.CONS ---
History of Present Illness - History of Present Illness 60-year-old male came in with complaints of her diffuse abdominal pain severe in nature has been going on for last few days without any nausea vomiting patient had a CT of the abdomen showed small bowel obstruction mechanical at the site of anastomosis. Patient had a small bowel resection which was done 5 years ago. General surgery evaluated the patient and the recommending surgery today. Patient has multiple other medical problems including coronary artery disease. REVIEW OF SYSTEMS: CONSTITUTIONAL: No fever, no malaise, no fatigue. HEENT: No recent visual problems or hearing problems. Denied any sore throat. CARDIOVASCULAR: No chest pain, orthopnea, PND, no palpitations, no syncope. PULMONARY: No shortness of breath, no cough, no hemoptysis. GASTROINTESTINAL: No diarrhea, no nausea, no vomiting. NEUROLOGICAL: No headaches, no weakness, no numbness. HEMATOLOGICAL: Denies any bleeding or petechiae. GENITOURINARY: Denies any burning micturition, frequency, or urgency. MUSCULOSKELETAL/RHEUMATOLOGICAL: Denies any joint pain, swelling, or any muscle pain. ENDOCRINE: Denies any polyuria or polydipsia. The rest of the 14-point review of systems is negative. PHYSICAL EXAMINATION: GENERAL: The patient is alert and oriented x3, not in any acute distress. Well developed, well nourished. HEENT: Pupils are round and equally reacting to light. EOMI. No scleral icterus. No conjunctival pallor. Normocephalic, atraumatic. No pharyngeal erythema. No thyromegaly. CARDIOVASCULAR: S1 and S2 present. No murmurs, rubs, or gallops. PULMONARY: Chest is clear to auscultation, no wheezing or crackles. ABDOMEN: Soft, nontender, nondistended, normoactive bowel sounds. No palpable organomegaly. MUSCULOSKELETAL: No joint swelling or deformity. EXTREMITIES: No cyanosis, clubbing, or pedal edema. NEUROLOGICAL: Gross neurological examination did not reveal any focal deficits. SKIN: No rashes. Assessment and plan -Mechanical small bowel obstruction: Patient will undergo laparotomy today general surgery evaluated the patient pain management as per their service -History of coronary artery disease patient heart rate is fairly well controlled at this time patient can be resumed on Coreg and aspirin whenever he can tolerate by mouth diet. Patient had a CABG in the past presently doesn't have any complaints such chest pain -Gastric esophageal reflux disease -Sleep apnea next and haven't progressed her disease -Rheumatoid arthritis for which patient is on multiple antibody which will be resumed whenever he can take by mouth medications -Anxiety disorder DVT prophylaxis: As per primary service Past Medical History Past Medical History: Coronary Artery Disease (CAD), GERD/Reflux, Myocardial Infarction ([place]), Rheumatoid Arthritis (RA), Sleep Apnea/CPAP/BIPAP, Vascular Disorder Additional Past Medical History / Comment(s): incisional hernia,gout, [place] x 3, varicose veins Last Myocardial Infarction Date:: 09/2014 History of Any Multi-Drug Resistant Organisms: None Reported Past Surgical History: Appendectomy, Bowel Resection, Coronary Bypass/CABG, Heart Catheterization, Hernia Repair Additional Past Surgical History / Comment(s): ABD. AORTOGRAM WITH MACKENZIE RUNOFF 01/07/16,Bilateral eye surgery for lazy eyes, CABG 08/2014 -4 vessel,02-01-17 stent to rt sfa Past Anesthesia/Blood Transfusion Reactions: Motion Sickness Additional Past Anesthesia/Blood Transfusion Reaction / Comm: unknown if had blood transfusion in past Past Psychological History: Anxiety Smoking Status: Never smoker Past Alcohol Use History: Occasional Past Drug Use History: None Reported - Past Family History Sister(s) Family Medical History: Cancer Additional Family Medical History / Comment(s): Patient has one sister with history of colon cancer Father Family Medical History: Cancer Additional Family Medical History / Comment(s): Father dad at age 73 with throat CA, heart problems, smoked and drank. Mother Family Medical History: Dementia Additional Family Medical History / Comment(s): Mother is alive at age 84 with history of atrial fibrillation, coronary artery disease, dementia, hypertension. Brother(s) Family Medical History: Pulmonary Embolus Additional Family Medical History / Comment(s): Patient has 2 brothers and one from Marfan's and one has diabetes. Medications and Allergies Home Medications Medication Instructions Recorded Confirmed Type ALPRAZolam [Xanax] 0.125 mg PO BID 08/11/14 06/28/22 History allopurinoL [Zyloprim] 300 mg PO DAILY tab 08/16/14 06/28/22 Rx Losartan [Cozaar] 25 mg PO DAILY 09/24/15 06/28/22 History Clopidogrel [Plavix] 75 mg PO DAILY #90 tab 02/03/16 06/28/22 Rx Tofacitinib Citrate [Xeljanz Xr] 11 mg PO DAILY 05/29/17 06/28/22 History Aspirin EC [Ecotrin Low Dose] 81 mg PO DAILY #30 tablet. 06/06/17 06/28/22 Rx Alfuzosin HCl [Alfuzosin HCl ER] 10 mg PO HS 06/28/22 06/28/22 History Atorvastatin [Lipitor] 20 mg PO DAILY 06/28/22 06/28/22 History Finasteride [Proscar] 5 mg PO DAILY 06/28/22 06/28/22 History Hydrocodone/Acetaminophen [[place] 1 tab PO Q12H PRN 06/28/22 06/28/22 History 5-325] carvediloL [Coreg] 3.125 mg PO BID 06/28/22 06/28/22 History predniSONE 5 mg PO Q48H 06/28/22 06/28/22 History Allergies Allergy/AdvReac Type Severity Reaction Status Date / Time No Known Allergies Allergy Verified 06/28/22 15:36 Physical Exam Vitals: Vital Signs Temp Pulse Pulse Resp BP BP Pulse Ox 06/28/22 15:30 98 F 74 18 142/77 98 06/28/22 15:29 97.6 F 53 L 16 123/85 98 06/28/22 06:58 98 F 63 18 121/78 98 Intake and Output 06/28/22 06/28/22 06/28/22 06:59 14:59 22:59 Other: Weight 102.058 kg Results CBC & Chem 7: 06/28/22 07:28 06/28/22 07:28 Labs: Abnormal Lab Results - Last 24 Hours (Table) 06/28/22 06/28/22 Range/Units 07:28 07:28 Lymphocytes # 0.9 L (1.0-4.8) k/uL Chloride 108 H (98-107) mmol/L Glucose 108 H (74-99) mg/dL
[2022-06-28] MEDS ORDERED: HEPARIN SODIUM,PORCINE/PF 5,000 UNIT/0.5 ML SYRINGE SQ ONE (15:46)
[2022-06-28] MEDS ORDERED: HYDROmorphone (PF) 1 MG/ML ONE (15:58)
[2022-06-28] MEDS ORDERED: ROCURONIUM 10 MG/ML (5 ML VIAL) IV ONE (15:58)
[2022-06-28] MEDS ORDERED: ePHEDrine 50 MG/ML 1 ML VIAL ONE (15:58)
[2022-06-28] MEDS ORDERED: fentaNYL (PF) 50 MCG/ML 2 ML AMP ONE (15:58)
[2022-06-28] MEDS ORDERED: GLYCOPYRROLATE 0.2 MG/ML 2 ML VIAL ONE (15:58)
[2022-06-28] MEDS ORDERED: SUCCINYLCHOLINE CHLORIDE 200 MG/10 ML VIAL IV ONE (15:58)
[2022-06-28] MEDS ORDERED: MIDAZOLAM 2 MG/2 ML VIAL ONE (15:58)
[2022-06-28] MEDS ORDERED: LIDOCAINE 2% INJ 20 MG/ML (2 ML VIAL) ONE (15:58)
[2022-06-28] MEDS ORDERED: PROPOFOL 10 MG/ML 20 ML VIAL IV ONE (15:58)
[2022-06-28] MEDS ORDERED: NEOSTIGMINE 1 MG/ML 10 ML VIAL ONE (15:58)
[2022-06-28] MEDS ORDERED: SODIUM CHLORIDE 0.9% 50 ML with ceFAZolin 2,000 MG IV ONE ×2 (16:20)
--- NOTE | 2022-06-28 17:18 | P.OP ---
Date of Procedure: 06/28/22 Preoperative Diagnosis: Small bowel obstruction Postoperative Diagnosis: Small bowel obstruction secondary to anastomotic scar and adhesions Procedure(s) Performed: Exposure laparotomy Small bowel resection Lysis of adhesions Repair of incisional hernia And peroneal mesh Anesthesia: SOFIA Surgeon: Luis E Adorno Estimated Blood Loss (ml): 100 Pathology: other (MeshSmall , bowel) Condition: stable Disposition: PACU Description of Procedure: The patient's placed on the operating table in the supine position. He received general endotracheal tube and see. His abdomen was prepped and draped usual sterile fashion. The skin was incised in the midline. The dissection through the abdominal wall was performed with left cautery. There was a small incisional hernia located superior portion of the scar. Has entered. Approximately 20 minutes of operative time used to lyse adhesions. The patient had a previous incisional hernia repair. There was appeared to be intraperitoneal mesh. This did create some significant scarring. These adhesions were lysed. Small bowel was run. In the distal small bowel the bowel was collapsed. There was a transition zone located around it. Small bowel anastomosis. This point the small bowel was transected proximally distally with the CHRISTOPHER stapler. And then using the Enseal device the mesentery the bowel was divided. Several small vessels were suture ligated. The a.m. bowel was then anastomosed using CHRISTOPHER and TA staplers. A set aside functional end-to-end stapled vessels was created. A 3-0 GI silk suture was uses a crotch stitch. The abdomen was irrigated there is no bleeding seen. The portion of mesh was intraperitoneal was then divided with O cautery and sent to pathology. Meticulous inspection was performed due to the patient's use of blood thinners preoperatively. There was no significant bleeding seen. The fascia was then closed with looped #1 PDS suture. The incisional hernia was repaired during fascial closure. Skin was closed [place]. Patient top she will sent to recovery room in stable condition.
[2022-06-28] MEDS ORDERED: HYDROmorphone 1 MG/ML 1 ML SYRINGE IVP PRN (17:19)
[2022-06-28] MEDS ORDERED: METOCLOPRAMIDE 5 MG/ML 2 ML VIAL IVP PRN (17:19)
[2022-06-28] MEDS ORDERED: LACTATED RINGERS 1,000 ML IV ONE (17:19)
[2022-06-28] MEDS ORDERED: HYDROmorphone 0.5 MG/0.5 ML SYRINGE IVP ONE ×5 (17:20→18:00)
[2022-06-28] MEDS ORDERED: MORPHINE SULFATE 4 MG/ML SYRINGE IVP ONE (18:32)
[2022-06-28] MEDS: HYDROcodone/APAP 5-325MG 1 EACH TAB PO PRN (20:22)
[2022-06-28] MEDS: carvediloL 3.125 MG TAB PO SCH (20:23)
[2022-06-28] MEDS: TAMSULOSIN 0.4 MG CAP.ER.24H PO SCH (20:23)
[2022-06-29] MEDS: HYDROcodone/APAP 5-325MG 1 EACH TAB PO PRN ×2 (02:43→15:23)
[2022-06-29] MEDS: HYDROmorphone 0.5 MG/0.5 ML SYRINGE IVP PRN ×4 (04:57→20:40)
[2022-06-29] MEDS: carvediloL 3.125 MG TAB PO SCH ×2 (06:24→17:25)
[2022-06-29] MEDS: NON FORMULARY DRUG (Tofacitinib Citrate [Xeljanz Xr] 11 MG Tab.Er.24h) PO SCH (08:18)
[2022-06-29] MEDS: ASPIRIN 81 MG PO SCH (08:18)
[2022-06-29] MEDS: allopurinoL 300 MG TAB PO SCH (08:18)
[2022-06-29] MEDS: ENOXAPARIN 40 MG/0.4 ML SYRINGE SQ SCH (08:18)
[2022-06-29] MEDS: FINASTERIDE 5 MG TAB PO SCH (08:18)
[2022-06-29] MEDS: ATORVASTATIN 20 MG TAB PO SCH (08:18)
[2022-06-29] MEDS ORDERED: CLOPIDOGREL 75 MG TAB PO SCH (09:00)
[2022-06-29 11:30] LABS: Basophils # (A) 0.01 X 10*3/uL (0.00-0.10); Basophils % (A) 0.1 %; Eosinophils # (A) 0 X 10*3/uL (0.04-0.35); Eosinophils % (A) 0 %; HCT 36.4 % (39.6-50.0); HGB 11.6 g/dL (13.0-17.0); Immature Grans, Automated 0.4 %; Lymphocytes # (A) 0.57 X 10*3/uL (0.90-5.00); Lymphocytes % (A) 7.4 %; MCH 31.3 pg (27.0-32.0); MCHC 31.9 g/dL (32.0-37.0); MCV 98.1 fL (80.0-97.0); Monocytes # (A) 0.55 X 10*3/uL (0.20-1.00); Monocytes % (A) 7.1 %; NRBC Per 100 WBC 0 /100 WBCS (0.0-0.0); Neutrophils # (A) 6.57 X 10*3/uL (1.80-7.70); Platelet Count 147 X 10*3/uL (140-440); RBC 3.71 X 10*6/uL (4.40-5.60); WBC 7.73 X 10*3/uL (4.50-10.00)
[2022-06-29 12:15] LABS: African American GFR (CKD) 105.4 (60.0-200.0); Albumin 3.6 g/dL (3.8-4.9); Albumin/Globulin Ratio 1.96 (1.60-3.17); Anion Gap 12.3 mmol/L (10.00-18.00); BUN/Creat Ratio 14.14 Ratio (12.00-20.00); Blood Urea Nitrogen 12.6 mg/dL (9.0-27.0); Calcium 8.2 mg/dL (8.7-10.3); Carbon Dioxide 21.6 mmol/L (20.0-27.5); Globulin 1.9 g/dL (1.6-3.3); Potassium 4.3 mmol/L (3.5-5.5); Total Bilirubin 0.4 mg/dL (0.30-1.20); Total Protein 5.5 g/dL (6.2-8.2)
[2022-06-29] MEDS: SODIUM CHLORIDE 0.9% 1,000 ML IV SCH (12:18)
--- NOTE | 2022-06-29 14:04 | P.PN ---
Progress Note - Text Progress Note Date: 06/29/22 the patient is postoperative day 1 from small bowel resection due to small bowel obstruction. He has some complaints of crampy abdominal pain. He has nasogastric tube had 700 cc aspirated last night. On exam vital signs appear stable. Abdomen is soft. Incision is clean dry intact. There is no significant bleeding. Patient will have his IV fluid decreased today. He will continue receive supportive care. We will start his diet hopefully tomorrow once his bowel function returns.
[2022-06-29] MEDS: TAMSULOSIN 0.4 MG CAP.ER.24H PO SCH (20:40)
--- NOTE | 2022-06-30 01:37 | P.PN ---
Subjective Progress Note Date: 06/29/22 - History of Present Illness 60-year-old male came in with complaints of her diffuse abdominal pain severe in nature has been going on for last few days without any nausea vomiting patient had a CT of the abdomen showed small bowel obstruction mechanical at the site of anastomosis. Patient had a small bowel resection which was done 5 years ago. General surgery evaluated the patient and the recommending surgery today. Patient has multiple other medical problems including coronary artery disease. 06/29/2022 Patient is seen and evaluated and followed this morning continues with NG tube and continues to have output noted. Sluggish bowel sounds noted patient reports he is passing gas or having bowel movements. Patient does have an indwelling Hawthorne catheter recommend removing and monitoring for retention. Patient is continued on Flomax. Encouraged to increase activity as tolerated and will also order incentive spirometer and recommend to continue using at least 10 times every hour while awake. Patient is currently afebrile and denies chest pain or shortness of breath. Patient reports he chronically wears oxygen in the outpatient setting and has history of sleep apnea. Patient is currently nothing by mouth and asking when he will be able to eat. Review of systems: Constitutional: No reports of fatigue, fever, or chills Cardiovascular: No reports of chest pain or palpitations Respiratory: No reports of shortness of breath or cough GI: No reports of nausea, vomiting, or diarrhea, reports no gas or bowel movement and irritation with the NG tube : No reports of dysuria or retention Neurovascular: No reports of weakness or numbness PHYSICAL EXAMINATION: GENERAL: The patient is alert and oriented x3, not in any acute distress. Well developed, well nourished. HEENT: Pupils are round and equally reacting to light. EOMI. No scleral icterus. No conjunctival pallor. Normocephalic, atraumatic. No pharyngeal erythema. No thyromegaly. CARDIOVASCULAR: S1 and S2 present. No murmurs, rubs, or gallops. PULMONARY: Chest is clear to auscultation, no wheezing or crackles. ABDOMEN: Soft, nontender, nondistended, sluggish bowel sounds. No palpable organomegaly. MUSCULOSKELETAL: No joint swelling or deformity. EXTREMITIES: No cyanosis, clubbing, or pedal edema. NEUROLOGICAL: Gross neurological examination did not reveal any focal deficits. SKIN: No rashes. Assessment: -Mechanical small bowel obstruction: Status post laparotomy with DR. Adorno resection and lysis of adhesions -History of coronary artery disease, resume oral medications once diet is initiated. -History of CABG -Gastroesophageal reflux disease -Sleep apnea most likely due to obesity hypoventilation syndrome -Rheumatoid arthritis -Anxiety disorder -DVT prophylaxis: As per primary service -Full code plan: Recommend continue current medications and management with surgery is attending currently maintained on NG tube and will continue Patient reports she has not passed gas or having bowel movements and continues with indwelling Hawthorne catheter Recommend removal Hawthorne catheter to monitor for any retention and may do postop residuals and straight catheterization if retaining Encouraged to increase activity as tolerated Patient chronically wears oxygen in the outpatient setting he reports Will add incentive spirometer and encourage the patient to use at least 10 times every hour while awake Follow-up on repeat labs in a.m. We will continue to follow with surgery during hospitalization. Thank you kindly for this consultation The impression and plan of care has been dictated by Fatemeh Clarke, Nurse Practitioner as directed. Dr. Julio MD I have performed a history and examination and MDM of this patient, discussed the same with the dictator, and agree with the dictator's assessment and plan as written ,documented as a scribe. Based on total visit time, I have performed more than 50% of the visit. Objective - Vital Signs Vital signs: Vital Signs Temp 98.2 F 06/29/22 08:00 Pulse 57 L 06/29/22 08:00 Resp 16 06/29/22 08:00 BP 122/81 06/29/22 08:00 Pulse Ox 99 06/29/22 08:00 FiO2 Intake & Output 06/28/22 06/29/22 06/29/22 18:59 06:59 18:59 Intake Total 900 Output Total 1100 850 Balance -200 -850 Weight 102.058 kg Intake: IV 900 Output: Urine 1000 850 Estimated Blood Loss 100 Other: Voiding Method Indwelling Catheter - Labs CBC & Chem 7: 06/29/22 06:23 06/29/22 06:23
[2022-06-30] MEDS: SODIUM CHLORIDE 0.9% 1,000 ML IV SCH ×2 (03:49→14:07)
[2022-06-30] MEDS: HYDROmorphone 0.5 MG/0.5 ML SYRINGE IVP PRN ×2 (04:18→08:02)
[2022-06-30] MEDS: carvediloL 3.125 MG TAB PO SCH ×2 (06:45→16:51)
[2022-06-30 08:02] LABS: African American GFR (CKD) >90 (>60 ml/min/1.73 sqM); Anion Gap 6 mmol/L; Blood Urea Nitrogen 11 mg/dL (9-20); Calcium 8.2 mg/dL (8.4-10.2); Carbon Dioxide 28 mmol/L (22-30); Chloride 105 mmol/L (98-107); Glucose 99 mg/dL (74-99); Magnesium 1.7 mg/dL (1.6-2.3); Non-African American GFR(CKD) >90 (>60 ml/min/1.73 sqM); Potassium 3.3 mmol/L (3.5-5.1); Sodium 139 mmol/L (137-145)
[2022-06-30] MEDS: FINASTERIDE 5 MG TAB PO SCH (09:02)
[2022-06-30] MEDS: ATORVASTATIN 20 MG TAB PO SCH (09:02)
[2022-06-30] MEDS: ENOXAPARIN 40 MG/0.4 ML SYRINGE SQ SCH (09:02)
[2022-06-30] MEDS: ASPIRIN 81 MG PO SCH (09:02)
[2022-06-30] MEDS: allopurinoL 300 MG TAB PO SCH (09:02)
[2022-06-30] MEDS: NON FORMULARY DRUG (Tofacitinib Citrate [Xeljanz Xr] 11 MG Tab.Er.24h) PO SCH (09:06)
--- NOTE | 2022-06-30 11:16 | P.PN ---
Progress Note - Text Progress Note Date: 06/30/22 The patient has had minimal output through his nasogastric tube overnight. He has not had any significant flatus. On exam vital signs are stable. Abdomen is soft. Incisions clean dry tach. Status post small bowel resection for small bowel obstruction. Patient will have his nasogastric tube removed today. He'll start on clears
[2022-06-30] MEDS: HYDROcodone/APAP 5-325MG 1 EACH TAB PO PRN ×2 (13:52→19:39)
[2022-06-30] MEDS ORDERED: Magnesium Replacement Protocol 1 EACH MISC MISCELLANE PRN (14:10)
[2022-06-30] MEDS ORDERED: Potassium Replacement Protocol 1 EACH MISC MISCELLANE PRN (14:10)
[2022-06-30] MEDS: MAGNESIUM SULFATE-D5W PMX 1 GM in DEXTROSE/WATER 1 100ML.BAG IVPB SCH ×2 (15:04→16:50)
[2022-06-30] MEDS: POTASSIUM CHLORIDE ER 20 MEQ TAB.ER PO SCH ×2 (15:04→16:51)
--- NOTE | 2022-06-30 15:34 | P.PN ---
Subjective Progress Note Date: 06/30/22 - History of Present Illness 60-year-old male came in with complaints of her diffuse abdominal pain severe in nature has been going on for last few days without any nausea vomiting patient had a CT of the abdomen showed small bowel obstruction mechanical at the site of anastomosis. Patient had a small bowel resection which was done 5 years ago. General surgery evaluated the patient and the recommending surgery today. Patient has multiple other medical problems including coronary artery disease. 06/29/2022 Patient is seen and evaluated and followed this morning continues with NG tube and continues to have output noted. Sluggish bowel sounds noted patient reports he is passing gas or having bowel movements. Patient does have an indwelling Hawthorne catheter recommend removing and monitoring for retention. Patient is continued on Flomax. Encouraged to increase activity as tolerated and will also order incentive spirometer and recommend to continue using at least 10 times every hour while awake. Patient is currently afebrile and denies chest pain or shortness of breath. Patient reports he chronically wears oxygen in the outpatient setting and has history of sleep apnea. Patient is currently nothing by mouth and asking when he will be able to eat. 06/30/2022 Patient is seen this morning maintained on NG tube although decreased output significantly having some hypoactive bowel sounds in NG tube is to be removed by general surgery today. Indwelling Hawthorne catheter was removed and patient having some retention requiring straight cath 2 recommending replacing indwelling Hawthorne catheter and will increase Flomax to 0.8 mg daily. Patient is also on Pro scar which has been resumed. Patient reports abdominal discomfort although somewhat improved and has been up and walking. Encouraged increase activity as tolerated and continued incentive spirometer use at least 10 times every hour while awake. Follow-up BMP notes a potassium of 3.3 along with magnesium of 1.7 and will replace and recommend repeat labs in the a.m. Patient is being started on clear liquid diet. Urology consulted for urinary retention. Patient is to continue on pain management per surgery. Afebrile denies chest pain or shortness of breath. Review of systems: Constitutional: No reports of fatigue, fever, or chills Cardiovascular: No reports of chest pain or palpitations Respiratory: No reports of shortness of breath or cough GI: No reports of nausea, vomiting, or diarrhea, reports minimal gas : Patient reports retention and straight cathed 2, having Hawthorne catheter replaced Neurovascular: No reports of weakness or numbness PHYSICAL EXAMINATION: GENERAL: The patient is alert and oriented x3, obese. Well developed, well nourished. HEENT: Pupils are round and equally reacting to light. EOMI. No scleral icterus. No conjunctival pallor. Normocephalic, atraumatic. No pharyngeal erythema. No thyromegaly. CARDIOVASCULAR: S1 and S2 muffled PULMONARY: Breath sounds diminished bilaterally with no wheezing or crackles noted ABDOMEN: Soft, obese mildly tender, nondistended, sluggish bowel sounds. No palpable organomegaly. MUSCULOSKELETAL: No joint swelling or deformity. EXTREMITIES: No cyanosis, clubbing, or pedal edema. NEUROLOGICAL: Gross neurological examination did not reveal any focal deficits. SKIN: No rashes. Assessment: -Mechanical small bowel obstruction: Status post bowel resection with DR. Adorno -History of coronary artery disease with CABG -Urinary retention requiring indwelling Hawthorne catheter -Gastroesophageal reflux disease -Sleep apnea most likely due to obesity hypoventilation syndrome -Rheumatoid arthritis -Anxiety disorder -DVT prophylaxis: As per primary service -Full code plan: Recommend continue current medications and management with surgery is attending currently maintained on NG tube and being removed today and patient will start clear liquid diet Patient reports has not passed gas or having bowel movements and continues with indwelling Hawthorne catheter Recommend replacing Hawthorne catheter due to retention and urology consulted. Encouraged to increase activity as tolerated Patient chronically wears oxygen in the outpatient setting he reports Recommend to continue with and encourage incentive spirometer at least 10 times every hour while awake Follow-up on repeat labs in a.m. as electrolytes being replaced per protocol, potassium, and magnesium We will continue to follow with surgery during hospitalization. Thank you kindly for this consultation The impression and plan of care has been dictated by Fatemeh Clarke, Nurse Practitioner as directed. Dr. Manohar MD I have performed a history and examination and MDM of this patient, discussed the same with the dictator, and agree with the dictator's assessment and plan as written ,documented as a scribe. Based on total visit time, I have performed more than 50% of the visit. Objective - Vital Signs Vital signs: Vital Signs Temp 97.5 F L 06/30/22 13:54 Pulse 67 06/30/22 13:54 Resp 18 06/30/22 13:54 BP 101/66 06/30/22 13:54 Pulse Ox 95 06/30/22 13:54 FiO2 Intake & Output 06/29/22 06/30/22 06/30/22 18:59 06:59 18:59 Output Total 1999 9670 709 Balance -[id number] 217 Output: Gastric Drainage 700 Urine 1300 1375 450 Other: Voiding Method Urinal - Labs CBC & Chem 7: 06/29/22 06:23 06/30/22 05:36 Labs: Abnormal Lab Results - Last 24 Hours (Table) 06/30/22 Range/Units 05:36 Potassium 3.3 L (3.5-5.1) mmol/L Calcium 8.2 L (8.4-10.2) mg/dL
[2022-06-30] MEDS: TAMSULOSIN 0.4 MG CAP.ER.24H PO SCH (19:38)
[2022-07-01] MEDS: SODIUM CHLORIDE 0.9% 1,000 ML IV SCH (00:44)
[2022-07-01] MEDS: HYDROcodone/APAP 5-325MG 1 EACH TAB PO PRN ×3 (04:29→21:57)
[2022-07-01] MEDS: allopurinoL 300 MG TAB PO SCH (08:33)
[2022-07-01] MEDS: carvediloL 3.125 MG TAB PO SCH ×2 (08:33→16:22)
[2022-07-01] MEDS: NON FORMULARY DRUG (Tofacitinib Citrate [Xeljanz Xr] 11 MG Tab.Er.24h) PO SCH (08:33)
[2022-07-01] MEDS: FINASTERIDE 5 MG TAB PO SCH (08:33)
[2022-07-01] MEDS: ENOXAPARIN 40 MG/0.4 ML SYRINGE SQ SCH (08:33)
[2022-07-01] MEDS: ATORVASTATIN 20 MG TAB PO SCH (08:33)
[2022-07-01] MEDS: ASPIRIN 81 MG PO SCH (08:33)
--- NOTE | 2022-07-01 08:40 | P.GSCN ---
History of Present Illness Consult date: 07/01/22 History of present illness: 61-year-old male whom we've been asked to see for postoperative urinary retention. He was in the hospital for abdominal pain secondary to a bowel obstruction from adhesions. This required a surgical lysis of adhesions and resection of bowel. The patient was unable to urinate adequately postoperatively and a catheter was placed. The patient does have a history of BPH. He has been on Flomax 0.4 daily for a couple of years and he states it is distinctly helps him. When he had to urinate yesterday he could not but felt full. Urine is clear. He is on his Flomax. Review of Systems All systems: negative - Constitutional Denies fever, Denies weight loss - EENT Eyes: denies blurred vision Ears, nose, mouth and throat: Denies dysphagia - Cardiovascular Denies chest pain, Denies shortness of breath - Respiratory Denies cough, Denies 7 - Gastrointestinal Reports as per HPI - Genitourinary Denies dysuria, Denies hematuria - Integumentary Denies rash, Denies unusual bruising - Neurological Denies headaches, Denies syncope - Hematologic/Lymphatic Denies easy bleeding, Denies easy bruising Past Medical History Past Medical History: Coronary Artery Disease (CAD), GERD/Reflux, Myocardial Infarction (AR), Rheumatoid Arthritis (RA), Sleep Apnea/CPAP/BIPAP, Vascular Disorder Additional Past Medical History / Comment(s): incisional hernia,gout, AR x 3, varicose veins Last Myocardial Infarction Date:: 09/2014 History of Any Multi-Drug Resistant Organisms: None Reported Past Surgical History: Appendectomy, Bowel Resection, Coronary Bypass/CABG, Heart Catheterization, Hernia Repair Additional Past Surgical History / Comment(s): ABD. AORTOGRAM WITH MACKENZIE RUNOFF 01/07/16,Bilateral eye surgery for lazy eyes, CABG 08/2014 -4 vessel,02-01-17 stent to rt sfa Past Anesthesia/Blood Transfusion Reactions: Motion Sickness Additional Past Anesthesia/Blood Transfusion Reaction / Comm: unknown if had blood transfusion in past Past Psychological History: Anxiety Smoking Status: Never smoker Past Alcohol Use History: Occasional Additional Past Alcohol Use History / Comment(s): Patient was a smoker of 1-1/2 packs per day for 27 years and quit 2001. He drinks alcohol, couple beers one time per month. Past Drug Use History: None Reported Additional Drug Use History / Comment(s): as teenager smoked marijuana. - Past Family History Sister(s) Family Medical History: Cancer Additional Family Medical History / Comment(s): Patient has one sister with history of colon cancer Father Family Medical History: Cancer Additional Family Medical History / Comment(s): Father dad at age 73 with throat CA, heart problems, smoked and drank. Mother Family Medical History: Dementia Additional Family Medical History / Comment(s): Mother is alive at age 84 with history of atrial fibrillation, coronary artery disease, dementia, hypertension. Brother(s) Family Medical History: Pulmonary Embolus Additional Family Medical History / Comment(s): Patient has 2 brothers and one from Marfan's and one has diabetes. Medications and Allergies Home Medications Medication Instructions Recorded Confirmed Type ALPRAZolam [Xanax] 0.125 mg PO BID 08/11/14 06/28/22 History allopurinoL [Zyloprim] 300 mg PO DAILY tab 08/16/14 06/28/22 Rx Losartan [Cozaar] 25 mg PO DAILY 09/24/15 06/28/22 History Clopidogrel [Plavix] 75 mg PO DAILY #90 tab 02/03/16 06/28/22 Rx Tofacitinib Citrate [Xeljanz Xr] 11 mg PO DAILY 05/29/17 06/28/22 History Aspirin EC [Ecotrin Low Dose] 81 mg PO DAILY #30 tablet. 06/06/17 06/28/22 Rx Alfuzosin HCl [Alfuzosin HCl ER] 10 mg PO HS 06/28/22 06/28/22 History Atorvastatin [Lipitor] 20 mg PO DAILY 06/28/22 06/28/22 History Finasteride [Proscar] 5 mg PO DAILY 06/28/22 06/28/22 History Hydrocodone/Acetaminophen [[place] 1 tab PO Q12H PRN 06/28/22 06/28/22 History 5-325] carvediloL [Coreg] 3.125 mg PO BID 06/28/22 06/28/22 History predniSONE 5 mg PO Q48H 06/28/22 06/28/22 History Allergies Allergy/AdvReac Type Severity Reaction Status Date / Time No Known Allergies Allergy Verified 06/28/22 15:36 Surgical - Exam Vital Signs Temp Pulse Resp BP Pulse Ox 98 F 63 18 121/78 98 06/28/22 06:58 06/28/22 06:58 06/28/22 06:58 06/28/22 06:58 06/28/22 06:58 - General well developed, well nourished, no distress - Eyes normal ocular movement, no icteric - ENT no hearing loss, no congestion - Neck no masses, trachea midline - Respiratory normal respiratory effort, clear to auscultation - Abdomen Abdominal incisions with abdominal binder some tenderness. Abdomen: soft, tender, no guarding, no rigid, no rebound - Genitourinary Uncircumcised male with an indwelling catheter normal testes descended. Prostat e 30 g and benign - Integumentary no rash, no abnormal pigmentation - Neurologic no disoriented, no combative - Psychiatric oriented to time, oriented to person, oriented to place, speech is normal, memory intact Results - Labs 06/29/22 06:23 06/30/22 05:36 Assessment and Plan Assessment: Impression: Postoperative urinary retention. Preoperative BPH. Multiple medical illnesses. Status post bowel resection and lysis of adhesions. Recommendations: The patient goes home today he should go home with an indwelling catheter and remain on the Flomax. I would see him next week for a catheter removal and voiding trial. If he stays in the hospital 24-48 hours longer I would try the catheter out for 1 more voiding trial prior to discharge.
[2022-07-01] MEDS: HYDROmorphone 0.5 MG/0.5 ML SYRINGE IVP PRN (08:42)
--- NOTE | 2022-07-01 12:21 | P.PN ---
Progress Note - Text Progress Note Date: 07/01/22 The patient is resting comfortably in his bed. He had a Hawthorne catheter placed for urinary retention yesterday. He states he feels better overall. He's had some bowel movements. On exam vital signs are stable. Abdomen is soft. Incision is clean dry tach. Status post repair of small bowel obstruction, small bowel resection. The patient will hopefully discharge home the next 24-48 hours.
[2022-07-01 12:22] LABS: Magnesium 1.9 mg/dL (1.5-2.4); Potassium 3.8 mmol/L (3.5-5.5)
[2022-07-01] MEDS: TAMSULOSIN 0.4 MG CAP.ER.24H PO SCH (21:55)
[2022-07-02] MEDS: carvediloL 3.125 MG TAB PO SCH ×3 (06:54→16:50)
[2022-07-02] MEDS: ATORVASTATIN 20 MG TAB PO SCH (09:03)
[2022-07-02] MEDS: ENOXAPARIN 40 MG/0.4 ML SYRINGE SQ SCH (09:03)
[2022-07-02] MEDS: allopurinoL 300 MG TAB PO SCH (09:03)
[2022-07-02] MEDS: FINASTERIDE 5 MG TAB PO SCH (09:03)
[2022-07-02] MEDS: ASPIRIN 81 MG PO SCH (09:03)
[2022-07-02] MEDS: NON FORMULARY DRUG (Tofacitinib Citrate [Xeljanz Xr] 11 MG Tab.Er.24h) PO SCH (09:04)
[2022-07-02] MEDS: HYDROcodone/APAP 5-325MG 1 EACH TAB PO PRN ×3 (09:04→21:42)
[2022-07-02 09:32] LABS: Basophils # (A) 0.02 X 10*3/uL (0.00-0.10); Basophils % (A) 0.5 %; Eosinophils # (A) 0.09 X 10*3/uL (0.04-0.35); Eosinophils % (A) 2.3 %; HCT 32.6 % (39.6-50.0); HGB 11.2 g/dL (13.0-17.0); Immature Grans, Automated 0.5 %; Lymphocytes # (A) 1.05 X 10*3/uL (0.90-5.00); Lymphocytes % (A) 26.5 %; MCH 32.2 pg (27.0-32.0); MCHC 34.4 g/dL (32.0-37.0); MCV 93.7 fL (80.0-97.0); Mean Platelet Volume 10.8 fL (9.5-12.2); Monocytes # (A) 0.43 X 10*3/uL (0.20-1.00); Monocytes % (A) 10.9 %; NRBC Per 100 WBC 0 /100 WBCS (0.0-0.0); Neutrophils # (A) 2.35 X 10*3/uL (1.80-7.70); Neutrophils % (A) 59.3 %; Platelet Count 178 X 10*3/uL (140-440); RBC 3.48 X 10*6/uL (4.40-5.60); RDW 12.7 % (11.5-14.5); WBC 3.96 X 10*3/uL (4.50-10.00)
[2022-07-02 09:35] LABS: African American GFR (CKD) 95.3 (60.0-200.0); Anion Gap 10.4 mmol/L (10.00-18.00); BUN/Creat Ratio 10.77 Ratio (12.00-20.00); Blood Urea Nitrogen 10.5 mg/dL (9.0-27.0); Calcium 8.9 mg/dL (8.7-10.3); Carbon Dioxide 27.6 mmol/L (20.0-27.5); Non-African American GFR(CKD) 82.2 (60.0-200.0); Potassium 3.9 mmol/L (3.5-5.5)
--- NOTE | 2022-07-02 10:46 | P.PN ---
Subjective Progress Note Date: 07/02/22 The patient was seen for urine retention post abdominal surgery. He failed one voiding trial. He does have preoperative BPH. The plan is to send him home with indwelling catheter. He has been instructed to pull it out approximately 6-8 hours prior to his office visit. I will see him later next week. Objective - Vital Signs Vital signs: Vital Signs Temp 98.3 F 07/02/22 08:00 Pulse 58 L 07/02/22 08:00 Resp 16 07/02/22 01:24 BP 116/68 07/02/22 08:00 Pulse Ox 95 07/02/22 08:00 FiO2 Intake & Output 07/01/22 07/02/22 07/02/22 18:59 06:59 18:59 Intake Total 600 Output Total 2900 Balance 600 -2900 Intake: Intake, IV Titration 600 Amount Sodium Chloride 0.9% 1, 600 000 ml @ 75 mls/hr IV . [id number] Rx#:[id number] Output: Urine 2900 Other: Voiding Method Indwelling Catheter Indwelling Catheter Indwelling Catheter - Labs CBC & Chem 7: 07/02/22 04:13 07/02/22 04:13 Labs: Abnormal Lab Results - Last 24 Hours (Table) 07/02/22 07/02/22 Range/Units 04:13 04:13 WBC 3.96 L (4.50-10.00) X 10*3/uL RBC 3.48 L (4.40-5.60) X 10*6/uL Hgb 11.2 L (13.0-17.0) g/dL Hct 32.6 L (39.6-50.0) % MCH 32.2 H (27.0-32.0) pg Carbon Dioxide 27.6 H (20.0-27.5) mmol/L BUN/Creatinine Ratio 10.77 L (12.00-20.00) Ratio
--- NOTE | 2022-07-02 12:02 | P.PN ---
Progress Note - Text Progress Note Date: 07/02/22 Patient's feeling slightly better. He still has complaints of pain. He had a bowel movement today. On exam vital signs are stable. Abdomen is soft. Incisions clean dry tach. Status post small bowel resection for small bowel obstruction. Patient will most likely be discharged home tomorrow.
[2022-07-02] MEDS: CLOPIDOGREL 75 MG TAB PO SCH (14:01)
--- NOTE | 2022-07-02 14:28 | PN ---
PROGRESS NOTE DATE OF SERVICE: 07/01/2022 SUBJECTIVE: This is a 61-year-old gentleman, who was admitted after small bowel resection. He is improving significantly. No chest pain. No palpitations. No fever. OBJECTIVE: VITAL SIGNS: Pulse is 61, blood pressure 110/77, respirations 16. HEENT: Conjunctivae are normal. NECK: No jugular venous distention. CARDIOVASCULAR: S1 and S2 muffled. RESPIRATORY: Breath sounds diminished at the bases. ABDOMEN: Soft. Status post surgery. LEGS: No edema. NERVOUS SYSTEM: Nonfocal. LABORATORY DATA: Potassium 3.3, corrected. ASSESSMENT: 1. Mechanical small bowel obstruction, status post small bowel resection. 2. History of coronary artery disease, coronary artery bypass grafting. 3. Urinary retention. 4. Gastroesophageal reflux disease. 5. Multiple medical issues. RECOMMENDATIONS: Recommend to continue current medications and symptomatic treatment. DVT prophylaxis. Incentive spirometry. Repeat lytes. We will continue to monitor along with Surgery. Further recommendations to follow. MMODL / IJN: [id number] /
[2022-07-02] MEDS: TAMSULOSIN 0.4 MG CAP.ER.24H PO SCH (21:42)
--- NOTE | 2022-07-03 00:58 | PN ---
PROGRESS NOTE DATE OF SERVICE: 07/02/2022 SUBJECTIVE: This is a 61-year-old gentleman who was admitted with mechanical small-bowel obstruction, also had small-bowel resection. The patient is being closely monitored. No chest pain. No palpitations. No fever. OBJECTIVE: VITAL SIGNS: Pulse is 58, blood pressureNTD, respirations 20. HEENT: Conjunctivae are normal _ ABDOMEN: Soft, status post surgery. LABS: Reviewed. ASSESSMENT: 1. Mechanical small-bowel obstruction, status post small bowel resection. 2. History of coronary artery disease, coronary artery bypass grafting. 3. Urinary retention. 4. Gastroesophageal reflux disease. 5. Multiple medical issues. RECOMMENDATIONS: Recommend to continue current medications and symptomatic treatment. DVT prophylaxis. Incentive spirometry. further recommendations to follow. MMODL / IJN: [id number] / MTDD
[2022-07-03] MEDS: NON FORMULARY DRUG (Tofacitinib Citrate [Xeljanz Xr] 11 MG Tab.Er.24h) PO SCH (09:53)
[2022-07-03] MEDS: ENOXAPARIN 40 MG/0.4 ML SYRINGE SQ SCH (09:54)
[2022-07-03] MEDS: ATORVASTATIN 20 MG TAB PO SCH (09:54)
[2022-07-03] MEDS: CLOPIDOGREL 75 MG TAB PO SCH (09:54)
[2022-07-03] MEDS: ASPIRIN 81 MG PO SCH (09:54)
[2022-07-03] MEDS: allopurinoL 300 MG TAB PO SCH (09:54)
[2022-07-03] MEDS: FINASTERIDE 5 MG TAB PO SCH (09:54)
[2022-07-03] MEDS: carvediloL 3.125 MG TAB PO SCH (09:55)
[2022-07-03] MEDS: HYDROcodone/APAP 5-325MG 1 EACH TAB PO PRN (12:01)
--- NOTE | 2022-07-03 12:13 | P.DS ---
Providers Date of admission: 06/28/22 09:01 Expected date of discharge: 07/03/22 Attending physician: Luis E Adorno Consults: 06/30/22 11:18 Consult Physician Routine Consulting Provider: Aden Donahue Consult Reason/Comments: urinary retention. Do you want consulting provider notified?: Yes Primary care physician: [facility] Course: The patient is a 61-year-old male who's Hospital complaints of abdominal pain. Patient's found have a small bowel obstruction. Patient underwent exploratory laparotomy small bowel resection. Please see chart for details. Procedures: Exposure laparotomy, small bowel resection with removal of peritoneal mesh bowel resection and removal of intraperitoneal mesh Patient Condition at Discharge: Fair Plan - Discharge Summary New Discharge Prescriptions: New Docusate [Colace] 100 mg PO BID #20 capsule oxyCODONE HCL [OxyIR] 5 mg PO Q6H PRN 3 Days #10 tab PRN Reason: Pain Acetaminophen Tab [Tylenol] 650 mg PO Q6H #30 tab No Action ALPRAZolam [Xanax] 0.125 mg PO BID allopurinoL [Zyloprim] 300 mg PO DAILY tab Losartan [Cozaar] 25 mg PO DAILY Clopidogrel [Plavix] 75 mg PO DAILY #90 tab Tofacitinib Citrate [Xeljanz Xr] 11 mg PO DAILY Aspirin EC [Ecotrin Low Dose] 81 mg PO DAILY #30 tablet. Finasteride [Proscar] 5 mg PO DAILY carvediloL [Coreg] 3.125 mg PO BID Alfuzosin HCl [Alfuzosin HCl ER] 10 mg PO HS Atorvastatin [Lipitor] 20 mg PO DAILY predniSONE 5 mg PO Q48H Hydrocodone/Acetaminophen [[place] 5-325] 1 tab PO Q12H PRN PRN Reason: pain Discharge Medication List ALPRAZolam [Xanax] 0.125 mg PO BID 08/11/14 [History] allopurinoL [Zyloprim] 300 mg PO DAILY tab 08/16/14 [Rx] Losartan [Cozaar] 25 mg PO DAILY 09/24/15 [History] Clopidogrel [Plavix] 75 mg PO DAILY #90 tab 02/03/16 [Rx] Tofacitinib Citrate [Xeljanz Xr] 11 mg PO DAILY 05/29/17 [History] Aspirin EC [Ecotrin Low Dose] 81 mg PO DAILY #30 tablet. 06/06/17 [Rx] Alfuzosin HCl [Alfuzosin HCl ER] 10 mg PO HS 06/28/22 [History] Atorvastatin [Lipitor] 20 mg PO DAILY 06/28/22 [History] Finasteride [Proscar] 5 mg PO DAILY 06/28/22 [History] Hydrocodone/Acetaminophen [[place] 5-325] 1 tab PO Q12H PRN 06/28/22 [History] carvediloL [Coreg] 3.125 mg PO BID 06/28/22 [History] predniSONE 5 mg PO Q48H 06/28/22 [History] Acetaminophen Tab [Tylenol] 650 mg PO Q6H #30 tab 07/03/22 [Rx] Docusate [Colace] 100 mg PO BID #20 capsule 07/03/22 [Rx] oxyCODONE HCL [OxyIR] 5 mg PO Q6H PRN 3 Days #10 tab 07/03/22 [Rx] Follow up Appointment(s)/Referral(s): Jean Claude Hernández MD [Primary Care Provider] - 1-2 days David Arvizu MD [STAFF PHYSICIAN] - 07/06/22 (Have patient pull catheter out 6- 8 hours prior to office visit) Luis E Adorno MD [STAFF PHYSICIAN] - 1 Week Patient Instructions/Handouts: Noguera Catheter Placement and Care (DC), Bowel Resection (DC) Activity/Diet/Wound Care/Special Instructions: HOME MEDS IN MED ROOM BIN Make appt for urology to remove noguera catheter, placed on 06/30/22 for retention Discharge Disposition: HOME SELF-CARE
[2022-07-03 14:25] VITALS: BP 118/74; PULSE 58; RESP 18; TEMP 98.6
--- NOTE | 2022-07-03 14:34 | P.PN ---
Subjective Progress Note Date: 07/03/22 - History of Present Illness 60-year-old male came in with complaints of her diffuse abdominal pain severe in nature has been going on for last few days without any nausea vomiting patient had a CT of the abdomen showed small bowel obstruction mechanical at the site of anastomosis. Patient had a small bowel resection which was done 5 years ago. General surgery evaluated the patient and the recommending surgery today. Patient has multiple other medical problems including coronary artery disease. 06/29/2022 Patient is seen and evaluated and followed this morning continues with NG tube and continues to have output noted. Sluggish bowel sounds noted patient reports he is passing gas or having bowel movements. Patient does have an indwelling Hawthorne catheter recommend removing and monitoring for retention. Patient is continued on Flomax. Encouraged to increase activity as tolerated and will also order incentive spirometer and recommend to continue using at least 10 times every hour while awake. Patient is currently afebrile and denies chest pain or shortness of breath. Patient reports he chronically wears oxygen in the outpatient setting and has history of sleep apnea. Patient is currently nothing by mouth and asking when he will be able to eat. 06/30/2022 Patient is seen this morning maintained on NG tube although decreased output significantly having some hypoactive bowel sounds in NG tube is to be removed by general surgery today. Indwelling Hawthorne catheter was removed and patient having some retention requiring straight cath 2 recommending replacing indwelling Hawthorne catheter and will increase Flomax to 0.8 mg daily. Patient is also on Pro scar which has been resumed. Patient reports abdominal discomfort although somewhat improved and has been up and walking. Encouraged increase activity as tolerated and continued incentive spirometer use at least 10 times every hour while awake. Follow-up BMP notes a potassium of 3.3 along with magnesium of 1.7 and will replace and recommend repeat labs in the a.m. Patient is being started on clear liquid diet. Urology consulted for urinary retention. Patient is to continue on pain management per surgery. Afebrile denies chest pain or shortness of breath. 07/03/2022 Patient seen and evaluated in follow-up today currently sitting up feeling much better. Patient reports he is being discharged today. Tolerating oral diet and reports to passing gas. Patient continues with indwelling Hawthorne catheter and recommend continue with outpatient follow-up with urology. Patient is afebrile denies chest pain or shortness of breath. Pain management per surgery services. Encourage the patient follow-up with primary care provider along with surgery is recommended in the outpatient setting. Encourage the patient to bring home incentive spirometer and continue using at least 10 times every hour while awake. Review of systems: Constitutional: No reports of fatigue, fever, or chills Cardiovascular: No reports of chest pain or palpitations Respiratory: No reports of shortness of breath or cough GI: No reports of nausea, vomiting, or diarrhea, reports minimal gas : no reports retention requiring indwelling Hawthorne catheterular: No reports of weakness or numbness PHYSICAL EXAMINATION: GENERAL: The patient is alert and oriented x3, obese. Well developed, well nourished. HEENT: Pupils are round and equally reacting to light. EOMI. No scleral icterus. No conjunctival pallor. Normocephalic, atraumatic. No pharyngeal erythema. No thyromegaly. CARDIOVASCULAR: S1 and S2 muffled PULMONARY: Breath sounds diminished bilaterally with no wheezing or crackles noted ABDOMEN: Soft, obese mildly tender, nondistended, sluggish bowel sounds. No palpable organomegaly. MUSCULOSKELETAL: No joint swelling or deformity. EXTREMITIES: No cyanosis, clubbing, or pedal edema. NEUROLOGICAL: Gross neurological examination did not reveal any focal deficits. SKIN: No rashes. Assessment: -Mechanical small bowel obstruction: Status post bowel resection with DR. Adorno -History of coronary artery disease with CABG -Urinary retention requiring indwelling Hawthorne catheter, will need outpatient follow-up with urology -Gastroesophageal reflux disease -Sleep apnea most likely due to obesity hypoventilation syndrome -Rheumatoid arthritis -Anxiety disorder -DVT prophylaxis: As per primary service -Full code plan: Recommend continue current medications and management with surgery as attending and planning on discharge today Recommend to continue with indwelling Hawthorne catheter and outpatient follow-up with urology Encouraged to increase activity as tolerated Recommend to continue with and encourage incentive spirometer at least 10 times every hour while awake We will continue to follow with surgery during hospitalization. Thank you kindly for this consultation Patient being discharged today. The impression and plan of care has been dictated by Fatemeh Clarke, Nurse Practitioner as directed. Dr. Manohar MD I have performed a history and examination and MDM of this patient, discussed the same with the dictator, and agree with the dictator's assessment and plan as written ,documented as a scribe. Based on total visit time, I have performed more than 50% of the visit. Objective - Vital Signs Vital signs: Vital Signs Temp 97.9 F 07/03/22 07:22 Pulse 57 L 07/03/22 07:22 Resp 16 07/03/22 07:22 BP 113/73 07/03/22 07:22 Pulse Ox 95 07/03/22 13:11 FiO2 Intake & Output 07/02/22 07/03/22 07/03/22 18:59 06:59 18:59 Output Total 2500 Balance -2500 Output: Urine 2500 Other: Voiding Method Indwelling Catheter Indwelling Catheter Indwelling Catheter - Labs CBC & Chem 7: 07/02/22 04:13 07/02/22 04:13
== END 2022-07-03 15:23 | disposition home or self-care (01) | DRG 330 ==
LOC: EC 06:54 → 5NMEDONC 09:01 → 4SSUR 16:55
PROVIDERS: ADMIT Surgery; ATTEND Surgery
PROC: 0D9670Z Drainage of Stomach with Drainage Device, Via Natural or Artificial Opening (ICD-10-PCS; 2022-06-28)
PROC: 0WPF0JZ Removal of Synthetic Substitute from Abdominal Wall, Open Approach (ICD-10-PCS; principal; 2022-06-28 11:15)
PROC: 0WQF0ZZ Repair Abdominal Wall, Open Approach (ICD-10-PCS; principal; 2022-06-28 11:15)
PROC: 0DNW0ZZ Release Peritoneum, Open Approach (ICD-10-PCS; principal; 2022-06-28 11:15)
PROC: 0DB80ZZ Excision of Small Intestine, Open Approach (ICD-10-PCS; principal; 2022-06-28 11:15)
DX: K56.50 Intestinal adhesions [bands], unspecified as to partial versus complete obstruction (principal); E66.2 Morbid (severe) obesity with alveolar hypoventilation; M06.9 Rheumatoid arthritis, unspecified; K43.2 Incisional hernia without obstruction or gangrene; I25.10 Atherosclerotic heart disease of native coronary artery without angina pectoris; K21.9 Gastro-esophageal reflux disease without esophagitis; N40.1 Benign prostatic hyperplasia with lower urinary tract symptoms; R33.8 Other retention of urine; I25.2 Old myocardial infarction; M10.9 Gout, unspecified; I83.90 Asymptomatic varicose veins of unspecified lower extremity; F41.9 Anxiety disorder, unspecified; Z68.33 Body mass index [BMI] 33.0-33.9, adult; Z79.82 Long term (current) use of aspirin; Z79.02 Long term (current) use of antithrombotics/antiplatelets; Z79.899 Other long term (current) drug therapy; Z95.1 Presence of aortocoronary bypass graft; Z95.820 Peripheral vascular angioplasty status with implants and grafts
CPT/HCPCS: 36415; 74176; 80048; 80053; 81003; 83605; 83690; 83735; 84132; 85025; 85610; 85730; 86850; 86900; 86901; 88300; 88307; 93005; 94760; 96361; 96374; 96376; 99285

== ENCOUNTER → 2022-12-08 | Outpatient (CLI) | payer BC ==
--- NOTE | 2022-12-08 13:52 | US ---
EXAMINATION TYPE: US abdomen complete DATE OF EXAM: 12/08/2022 COMPARISON: CT abdomen and pelvis June 28, 2022 CLINICAL INDICATION: Male, 62 years old with history of N20.0 CALCULUS OF KIDNEY; lt flank pain on an d off for awhile TECHNIQUE: Multiple sonographic images of the abdomen are obtained. 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 Portions suboptimally evaluated. The intrahepatic portion of t he IVC and proximal abdominal aorta are within normal limits. There is no evidence of shadowing mobi le cholelithiasis. Common bile duct is unremarkable. The visualized portions of the pancreas are ho mogenous. The spleen is unremarkable. Kidneys are symmetric and free of hydronephrosis. No renal l esions are seen. IMPRESSION: Suboptimal study. No hydronephrosis is evident bilaterally.
== END | disposition home or self-care (01) ==
LOC: RADUSWWP 13:05
PROVIDERS: ATTEND Internal Medicine Geriatric Medicine
DX: N20.0 Calculus of kidney (principal)
CPT/HCPCS: 76700

== ENCOUNTER 2023-01-21 17:21 | Observation (INO) | payer BC ==
[2023-01-21] MEDS ORDERED: ASPIRIN 81 MG PO STA (17:48)
--- NOTE | 2023-01-21 18:11 | ED ---
Chest Pain HPI - General Chief Complaint: Chest Pain Stated Complaint: Chest Pain Time Seen by Provider: 01/21/23 17:37 Source: patient Mode of arrival: ambulatory Limitations: no limitations - History of Present Illness Initial Comments: 62-year-old male with history of CAD with 4 vessel bypass and [place] presenting with chief complaint of chest pain. Patient states that for several days he has had brief repeated episodes of chest pressure and diaphoresis. States that the episodes last for less than 10 seconds but are a 10 out of 10 pain. He is not experiencing any pain at this time. He does have increased shortness of breath with these episodes. No nausea or vomiting. No radiation of pain down the arm or the neck. No dizziness or syncope. - Related Data Home Medications Medication Instructions Recorded Confirmed ALPRAZolam [Xanax] 0.125 mg PO BID 08/11/14 01/21/23 Tofacitinib Citrate [Xeljanz Xr] 11 mg PO DAILY 05/29/17 01/21/23 Alfuzosin HCl [Alfuzosin HCl ER] 10 mg PO HS 06/28/22 01/21/23 Atorvastatin [Lipitor] 20 mg PO HS 06/28/22 01/21/23 Finasteride [Proscar] 5 mg PO DAILY 06/28/22 01/21/23 carvediloL [Coreg] 3.125 mg PO BID 06/28/22 01/21/23 Folate 1333 Mcg Tabs 1,333 mcg PO DAILY 01/21/23 01/21/23 Hydroxychloroquine Sulfate 200 mg PO BID 01/21/23 01/21/23 [Plaquenil] Losartan Potassium [Cozaar] 12.5 mg PO DAILY 01/21/23 01/21/23 Pantoprazole [Protonix] 40 mg PO Q48H 01/21/23 01/21/23 Previous Rx's Medication Instructions Recorded allopurinoL [Zyloprim] 300 mg PO DAILY tab 08/16/14 Clopidogrel [Plavix] 75 mg PO DAILY #90 tab 02/03/16 Aspirin EC [Ecotrin Low Dose] 81 mg PO DAILY #30 tablet. 06/06/17 Allergies Allergy/AdvReac Type Severity Reaction Status Date / Time No Known Allergies Allergy Verified 01/21/23 20:41 Review of Systems ROS Statement: Those systems with pertinent positive or pertinent negative responses have been documented in the HPI. ROS Other: All systems not noted in ROS Statement are negative. EKG Findings - EKG Comments: EKG Findings:: Sinus bradycardia with ventricular rate 59. WV interval 142. Q RS 88. QTC 427. QTc 426. Normal axis. No ST deviation or T wave inversion. Past Medical History Past Medical History: Coronary Artery Disease (CAD), GERD/Reflux, Myocardial Infarction (WA), Rheumatoid Arthritis (RA), Sleep Apnea/CPAP/BIPAP, Vascular Disorder Additional Past Medical History / Comment(s): incisional hernia,gout, [place] x 3, varicose veins Last Myocardial Infarction Date:: 09/2014 History of Any Multi-Drug Resistant Organisms: None Reported Past Surgical History: Appendectomy, Bowel Resection, Coronary Bypass/CABG, Heart Catheterization, Hernia Repair Additional Past Surgical History / Comment(s): ABD. AORTOGRAM WITH MACKENZIE RUNOFF 01/07/16,Bilateral eye surgery for lazy eyes, CABG 08/2014 -4 vessel,02-01-17 stent to rt sfa Past Anesthesia/Blood Transfusion Reactions: Motion Sickness Additional Past Anesthesia/Blood Transfusion Reaction / Comment(s): unknown if had blood transfusion in past Past Psychological History: Anxiety Smoking Status: Never smoker Past Alcohol Use History: Occasional Past Drug Use History: None Reported - Past Family History Sister(s) Family Medical History: Cancer Additional Family Medical History / Comment(s): Patient has one sister with history of colon cancer Father Family Medical History: Cancer Additional Family Medical History / Comment(s): Father dad at age 73 with throat CA, heart problems, smoked and drank. Mother Family Medical History: Dementia Additional Family Medical History / Comment(s): Mother is alive at age 84 with history of atrial fibrillation, coronary artery disease, dementia, hypertension. Brother(s) Family Medical History: Pulmonary Embolus Additional Family Medical History / Comment(s): Patient has 2 brothers and one from Marfan's and one has diabetes. General Exam Limitations: no limitations General appearance: alert, in no apparent distress Head exam: Present: atraumatic, normocephalic, normal inspection Eye exam: Present: normal appearance Neck exam: Present: normal inspection, full ROM Respiratory exam: Present: normal lung sounds bilaterally. Absent: respiratory distress, wheezes, rales, rhonchi, stridor Cardiovascular Exam: Present: regular rate, normal rhythm, normal heart sounds. Absent: systolic murmur, diastolic murmur, rubs, gallop, clicks Neurological exam: Present: alert, oriented X3, CN II-XII intact Psychiatric exam: Present: normal affect, normal mood Skin exam: Present: warm, dry, intact, normal color. Absent: rash Course Vital Signs 01/21/23 01/21/23 01/21/23 17:23 17:27 19:53 Temperature 98.2 F Pulse Rate 64 56 L 56 L Respiratory 18 16 20 Rate Blood Pressure 150/86 176/94 153/85 O2 Sat by Pulse 95 99 100 Oximetry Chest Pain MDM - MDM Was pt. sent in by a medical professional or institution (, PA, [employer] ENFORCEMENT OFFICER, urgent care, hospital, or long term...) When possible be specific @ -No Did you speak to anyone other than the patient for history (EMS, parent, family, police, friend...)? What history was obtained from this source @ -No Did you review nursing and triage notes (agree or disagree)? Why? @ -I reviewed and agree with nursing and triage notes Were old charts reviewed (outside hosp., previous admission, EMS record, old EKG, old radiological studies, urgent care reports/EKG's, long term records)? Report findings @ -No old charts were reviewed Differential Diagnosis (chest pain, altered mental status, abdominal pain women, abdominal pain men, vaginal bleeding, weakness, fever, dyspnea, syncope, headache, dizziness, GI bleed, back pain, seizure, CVA, palpatations, mental health, musculoskeletal)? @ -[facility] Differential Chest Pain: Stable Angina, Unstable Angina, STEMI, NSTEMI Aortic Dissection, Pneumothorax, Musculoskeletal, Esophageal Spasm GERD, Cholecystitis, Pancreatitis, Zoster This is not meant to be an all-inclusive list. EKG interpreted by me (3pts min.). @ -As above X-rays interpreted by me (1pt min.). @ -Negative chest x-ray CT interpreted by me (1pt min.). @ -None done U/S interpreted by me (1pt. min.). @ -None done What testing was considered but not performed or refused? (CT, X-rays, U/S, labs)? Why? @ -None What meds were considered but not given or refused? Why? @ -None Did you discuss the management of the patient with other professionals (professionals i.e. Dr., PA, [employer] ENFORCEMENT OFFICER, lab, RT, psych nurse, nephrology social worker, revolving field assembler, teacher, multisensor intelligence officer, pillowcase cutter)? Give summary @ -I spoke with Ewa Chou who accepted admission of this patient Was smoking cessation discussed for >3mins.? @ -No Was critical care preformed (if so, how long)? @ -No Were there social determinants of health that impacted care today? How? (Homelessness, low income, unemployed, alcoholism, drug addiction, transportation, low edu. Level, literacy, decrease access to med. care, long term, rehab)? @ -No Was there de-escalation of care discussed even if they declined (Discuss DNR or withdrawal of care, Hospice)? DNR status @ -No What co-morbidities impacted this encounter? (DM, HTN, Smoking, COPD, CAD, Cancer, CVA, ARF, Chemo, Hep., AIDS, mental health diagnosis, sleep apnea, morbid obesity)? @ -CAD with CABG Was patient admitted / discharged? Hospital course, mention meds given and route, prescriptions, significant lab abnormalities, going to OR and other pertinent info. @ -62-year-old male presenting with chief complaint of chest discomfort and diaphoresis. He has had repeated episodes throughout the week. No pain currently. His examination is unremarkable. Workup is grossly negative including troponin, EKG, and chest x-ray. Patient will be admitted for observation with evaluation by cardiology. Patient is agreeable with this plan. I discussed this case with my attending Dr. Mckeon Undiagnosed new problem with uncertain prognosis? @ -No Drug Therapy requiring intensive monitoring for toxicity (Heparin, Nitro, Insulin, Cardizem)? @ -No Were any procedures done? @ -No Diagnosis/symptom? @ -Chest pain Acute, or Chronic, or Acute on Chronic? @ -Acute Uncomplicated (without systemic symptoms) or Complicated (systemic symptoms)? @ -Complicated Side effects of treatment? @ -No Exacerbation, Progression, or Severe Exacerbation? @ -No Poses a threat to life or bodily function? How? (Chest pain, USA, [place], pneumonia, PE, COPD, DKA, ARF, appy, cholecystitis, CVA, Diverticulitis, Homicidal, Suicidal, threat to staff... and all critical care pts) @ -yes Disposition Clinical Impression: Chest pain Disposition: ADMITTED IP TO THIS HOSP Condition: Fair Time of Disposition: 19:25
--- NOTE | 2023-01-21 18:19 | XR ---
EXAMINATION TYPE: XR chest 2V DATE OF EXAM: 01/21/2023 6:16 PM COMPARISON: Chest radiographs from 06/28/2022 TECHNIQUE: XR chest 2V Frontal and lateral views of the chest. CLINICAL INDICATION:Male, 62 years old with history of Chest Pain; FINDINGS: Lungs/Pleura: There is no evidence of pleural effusion, focal consolidation, or pneumothorax. Pulmonary vascularity: Unremarkable. Heart/mediastinum: Cardiomediastinal silhouette is unremarkable. Musculoskeletal: No acute osseous pathology. Midline sternotomy wires are noted. IMPRESSION: No acute cardiopulmonary disease/process.
[2023-01-21 18:24] LABS: Basophils % (A) 1 %; Eosinophils # (A) 0.1 k/uL (0-0.7); Eosinophils % (A) 1 %; HCT 41.8 % (39.0-53.0); HGB 14.4 gm/dL (13.0-17.5); Lymphocytes # (A) 1.6 k/uL (1.0-4.8); Lymphocytes % (A) 30 %; MCH 32.7 pg (25.0-35.0); MCHC 34.4 g/dL (31.0-37.0); Mean Platelet Volume 7.9; Monocytes # (A) 0.4 k/uL (0-1.0); Monocytes % (A) 7 %; Neutrophils % (A) 58 %; Platelet Count 177 k/uL (150-450); RDW 13.7 % (11.5-15.5); WBC 5.2 k/uL (3.8-10.6)
[2023-01-21 18:41] LABS: ALT 31 U/L (4-49); AST 30 U/L (17-59); African American GFR (CKD) >90 (>60 ml/min/1.73 sqM); Albumin 4.2 g/dL (3.5-5.0); Alkaline Phosphatase 58 U/L (38-126); Anion Gap 6 mmol/L; Blood Urea Nitrogen 16 mg/dL (9-20); Calcium 9.2 mg/dL (8.4-10.2); Carbon Dioxide 29 mmol/L (22-30); Chloride 107 mmol/L (98-107); Glucose 97 mg/dL (74-99); Magnesium 1.9 mg/dL (1.6-2.3); Non-African American GFR(CKD) 79 (>60 ml/min/1.73 sqM); Potassium 4.4 mmol/L (3.5-5.1); Sodium 142 mmol/L (137-145); Total Bilirubin 0.5 mg/dL (0.2-1.3); Total Protein 7.2 g/dL (6.3-8.2)
[2023-01-21 18:45] LABS: INR 0.9 (<1.2); Partial Thromboplastin Time 23.5 sec (22.0-30.0); Prothrombin Time 9.9 sec (9.0-12.0)
[2023-01-21] MEDS ORDERED: NALOXONE 0.4 MG/ML 1 ML VIAL IV PRN (19:23)
[2023-01-21] MEDS ORDERED: ALPRAZolam 0.25 MG TAB PO PRN (21:13)
[2023-01-21] MEDS ORDERED: ATORVASTATIN 20 MG TAB PO SCH (21:15)
[2023-01-21] MEDS: carvediloL 3.125 MG TAB PO SCH (21:38)
[2023-01-21 23:23] VITALS: RESP 16
[2023-01-22] MEDS ORDERED: PANTOPRAZOLE 40 MG TABLET PO SCH (07:30)
[2023-01-22] MEDS ORDERED: allopurinoL 300 MG TAB PO SCH (09:00)
[2023-01-22] MEDS ORDERED: HYDROXYCHLOROQUINE SULFATE 200 MG TAB PO SCH (09:00)
[2023-01-22] MEDS ORDERED: NON FORMULARY DRUG (Tofacitinib Citrate [Xeljanz Xr] 11 MG Tab.Er.24h) PO SCH (09:00)
[2023-01-22] MEDS ORDERED: ASPIRIN 81 MG PO SCH (09:00)
[2023-01-22] MEDS ORDERED: CLOPIDOGREL 75 MG TAB PO SCH (09:00)
[2023-01-22] MEDS ORDERED: FOLIC ACID 1 MG TAB PO SCH (09:00)
[2023-01-22] MEDS ORDERED: FINASTERIDE 5 MG TAB PO SCH (09:00)
[2023-01-22] MEDS ORDERED: LOSARTAN 25 MG TAB PO SCH (09:00)
[2023-01-22] MEDS: carvediloL 3.125 MG TAB PO SCH (09:48)
--- NOTE | 2023-01-22 10:27 | P.CRDCN ---
History of Present Illness History of present illness: HISTORY OF PRESENT ILLNESS: This is a 62-year-old male with a past medical history significant for peripheral arterial disease with previous lower extremity intervention, myocardial infarction, coronary artery disease with four-vessel CABG in 2012, rheumatoid arthritis, and obstructive sleep apnea with CPAP use. Patient follows in the office with Dr. Cadena. We have been asked to see the patient in consultation for chest pain. Patient examined at the bedside. Patient states over the weekend he was walking to his coffee table when he began to have pain in the middle of his chest. He states the pain was a sharp pain or lasted for about 2-3 seconds and then went away. He states he had another episode on Sunday morning around 4:30 AM while he was watching television. He also reports feeling diaphoretic at that time. He states this episode only lasted for a few seconds as well and went away on its own. He denies having any further episodes of chest pain since that time. The patient does report a lot of burping lately. At the time of examination this morning, the patient is complaining of abdominal pain. He also has tenderness with palpation of his abdomen. He denies any shortness of breath. He denies dizziness or lightheadedness. The patient is a nonsmoker. He reports alcohol use 2-3 times a week. * EKG reveals sinus mechanism with no signs of acute ischemia * Chest xray no acute cardiopulmonary process * Laboratory data: WBC 5.2. Hemoglobin 14.4. Platelet count 177. Sodium 142. Potassium 4.4. BUN 16. Creatinine 1.0. Magnesium 1.9. Troponin negative 3 * Current home cardiac medications include losartan 12.5 mg daily, Lipitor 20 mg at night, carvedilol 3.125 mg twice a day, Plavix 75 mg daily, aspirin 81 mg daily * Most recent echocardiogram obtained in the office in January 2022 revealed ejection fraction 55%, moderate mitral regurgitation, [id number] tricuspid regurgitation * Patient underwent Lexiscan stress test in January 2022 in the office which was negative for ischemia * Cardiac catheterization history: September 2014 revealed MON to LAD is patent, vein graft to first obtuse marginal branch is occluded, vein graft into second obtuse marginal branch is patent, vein graft into diagonal is patent, RCA has 40-50% distal lesion. REVIEW OF SYSTEMS: At the time of my exam: CONSTITUTIONAL: Denies fever or chills. HEENT: Denies blurred vision, vision changes, or eye pain. Denies hemoptysis CARDIOVASCULAR: Denies chest pain. Denies orthopnea. Denies PND. Denies palpitations RESPIRATORY: Denies shortness of breath. GASTROINTESTINAL: Denies abdominal pain. Denies nausea or vomiting. HEMATOLOGIC: Denies bleeding disorders. GENITOURINARY: Denies any blood in urine. SKIN: Denies pruitis. Denies rash. PHYSICAL EXAM: VITAL SIGNS: Reviewed. GENERAL: Well-developed in no acute distress. HEENT: Head is normocephalic. Pupils are equal, round. Sclerae anicteric. Mucous membranes of the mouth are moist. Neck supple. No JVD or thyromegaly LUNGS: Respirations even and unlabored. Lungs essentially clear to auscultation bilaterally. HEART: Regular rate and rhythm. S1 and S2 heard. ABDOMEN: Soft. Nondistended. Tenderness with palpation. EXTREMITIES: Normal range of motion. No clubbing or cyanosis. Peripheral pulses intact. No lower extremity edema NEUROLOGIC: Awake and alert. Oriented x 3. ASSESSMENT: Chest pain, troponins negative 3, noncardiac Abdominal pain, etiology unclear Coronary artery disease with previous four-vessel CABG in 2013 Peripheral arterial disease with previous lower extremity intervention Rheumatoid arthritis Obstructive sleep apnea with CPAP use Hypertension Hyperlipidemia PLAN: An acute coronary event has been ruled out Patient is complaining of significant abdominal pain this morning. Recommend further evaluation of abdominal pain per primary medicine. Resume home cardiac medications The patient may be discharged home this afternoon from a cardiac standpoint He will follow up in the office with Dr. Cadena Nurse practitioner note has been reviewed by physician. Signing provider agrees with the documented findings, assessment, and plan of care. Dr. Jameson addendum Patient was personally seen by me. The case was discussed in detail with the nurse practitioner who helped with the above documentation. I agree with this assessment and plan. Past Medical History Past Medical History: Coronary Artery Disease (CAD), GERD/Reflux, Myocardial Infarction ([place]), Rheumatoid Arthritis (RA), Sleep Apnea/CPAP/BIPAP, Vascular Disorder Additional Past Medical History / Comment(s): incisional hernia,gout, [place] x 3, varicose veins Last Myocardial Infarction Date:: 09/2014 History of Any Multi-Drug Resistant Organisms: None Reported Past Surgical History: Appendectomy, Bowel Resection, Coronary Bypass/CABG, Heart Catheterization, Hernia Repair Additional Past Surgical History / Comment(s): ABD. AORTOGRAM WITH MACKENZIE RUNOFF 01/07/16,Bilateral eye surgery for lazy eyes, CABG 08/2014 -4 vessel,02-01-17 stent to rt sfa Past Anesthesia/Blood Transfusion Reactions: Motion Sickness Additional Past Anesthesia/Blood Transfusion Reaction / Comment(s): unknown if had blood transfusion in past Past Psychological History: Anxiety Smoking Status: Never smoker Past Alcohol Use History: Occasional Past Drug Use History: None Reported - Past Family History Sister(s) Family Medical History: Cancer Additional Family Medical History / Comment(s): Patient has one sister with history of colon cancer Father Family Medical History: Cancer Additional Family Medical History / Comment(s): Father dad at age 73 with throat CA, heart problems, smoked and drank. Mother Family Medical History: Dementia Additional Family Medical History / Comment(s): Mother is alive at age 84 with history of atrial fibrillation, coronary artery disease, dementia, hypertension. Brother(s) Family Medical History: Pulmonary Embolus Additional Family Medical History / Comment(s): Patient has 2 brothers and one from Marfan's and one has diabetes. Medications and Allergies Home Medications Medication Instructions Recorded Confirmed Type ALPRAZolam [Xanax] 0.125 mg PO BID 08/11/14 01/21/23 History allopurinoL [Zyloprim] 300 mg PO DAILY tab 08/16/14 01/21/23 Rx Clopidogrel [Plavix] 75 mg PO DAILY #90 tab 02/03/16 01/21/23 Rx Tofacitinib Citrate [Xeljanz Xr] 11 mg PO DAILY 05/29/17 01/21/23 History Aspirin EC [Ecotrin Low Dose] 81 mg PO DAILY #30 tablet. 06/06/17 01/21/23 Rx Alfuzosin HCl [Alfuzosin HCl ER] 10 mg PO HS 06/28/22 01/21/23 History Atorvastatin [Lipitor] 20 mg PO HS 06/28/22 01/21/23 History Finasteride [Proscar] 5 mg PO DAILY 06/28/22 01/21/23 History carvediloL [Coreg] 3.125 mg PO BID 06/28/22 01/21/23 History Folate 1333 Mcg Tabs 1,333 mcg PO DAILY 01/21/23 01/21/23 History Hydroxychloroquine Sulfate 200 mg PO BID 01/21/23 01/21/23 History [Plaquenil] Losartan Potassium [Cozaar] 12.5 mg PO DAILY 01/21/23 01/21/23 History Pantoprazole [Protonix] 40 mg PO Q48H 01/21/23 01/21/23 History Allergies Allergy/AdvReac Type Severity Reaction Status Date / Time No Known Allergies Allergy Verified 01/21/23 20:41 Physical Exam Vitals: Vital Signs Temp Pulse Pulse Resp BP BP Pulse Ox 01/22/23 02:13 98.2 F 87 16 104/67 99 01/21/23 20:45 98.5 F 56 L 16 135/83 96 01/21/23 20:29 148/78 98 01/21/23 19:53 56 L 20 153/85 100 01/21/23 17:27 56 L 16 176/94 99 01/21/23 17:23 98.2 F 64 18 150/86 95 Intake and Output 01/21/23 01/22/23 01/22/23 22:59 06:59 14:59 Intake Total 250 Balance 250 Intake: Oral 250 Other: Voiding Method Toilet # Voids 2 Weight 98.883 kg Results 01/21/23 17:48 01/21/23 17:48 Cardiac Enzymes 01/21/23 01/21/23 01/21/23 Range/Units 17:48 17:48 20:51 AST 30 (17-59) U/L Troponin I <0.012 <0.012 (0.000-0.034) ng/mL 01/21/23 Range/Units 23:26 AST (17-59) U/L Troponin I <0.012 (0.000-0.034) ng/mL Coagulation 01/21/23 Range/Units 17:48 PT 9.9 (9.0-12.0) sec APTT 23.5 (22.0-30.0) sec CBC 01/21/23 Range/Units 17:48 WBC 5.2 (3.8-10.6) k/uL RBC 4.40 (4.30-5.90) m/uL Hgb 14.4 (13.0-17.5) gm/dL Hct 41.8 (39.0-53.0) % Plt Count 177 (150-450) k/uL Comprehensive Metabolic Panel 01/21/23 Range/Units 17:48 Sodium 142 (137-145) mmol/L Potassium 4.4 (3.5-5.1) mmol/L Chloride 107 (98-107) mmol/L Carbon Dioxide 29 (22-30) mmol/L BUN 16 (9-20) mg/dL Creatinine 1.00 (0.66-1.25) mg/dL Glucose 97 (74-99) mg/dL Calcium 9.2 (8.4-10.2) mg/dL AST 30 (17-59) U/L ALT 31 (4-49) U/L Alkaline Phosphatase 58 (38-126) U/L Total Protein 7.2 (6.3-8.2) g/dL Albumin 4.2 (3.5-5.0) g/dL Current Medications Generic Name Dose Route Start Last Admin Trade Name Freq PRN Reason Stop Dose Admin Allopurinol 300 mg 01/22/23 09:00 Allopurinol 300 Mg Tab PO DAILY TEZ Alprazolam 0.125 mg 01/21/23 21:13 Alprazolam 0.25 Mg Tab PO BID PRN Anxiety Aspirin 81 mg 01/22/23 09:00 Aspirin 81 Mg PO DAILY TEZ Atorvastatin Calcium 20 mg 01/21/23 21:15 01/21/23 21:38 Atorvastatin 20 Mg Tab PO 20 mg HS TEZ Administration Carvedilol 3.125 mg 01/21/23 21:15 01/21/23 21:38 Carvedilol 3.125 Mg Tab PO 3.125 mg BID TEZ Administration Clopidogrel Bisulfate 75 mg 01/22/23 09:00 Clopidogrel 75 Mg Tab PO DAILY TEZ Finasteride 5 mg 01/22/23 09:00 Finasteride 5 Mg Tab PO DAILY TEZ Folic Acid 1 mg 01/22/23 09:00 Folic Acid 1 Mg Tab PO DAILY [facility] Hydroxychloroquine Sulfate 200 mg 01/22/23 09:00 Hydroxychloroquine Sulfate 200 Mg Tab PO BID [facility] Losartan Potassium 12.5 mg 01/22/23 09:00 Losartan 25 Mg Tab PO DAILY [facility] Naloxone HCl 0.2 mg 01/21/23 19:23 Naloxone 0.4 Mg/Ml 1 Ml Vial IV Q2M PRN Opioid Reversal Non-Formulary Medication 11 mg 01/22/23 09:00 Tofacitinib Citrate [Xeljanz Xr] PO DAILY TEZ Pantoprazole Sodium 40 mg 01/22/23 07:30 01/22/23 05:57 Pantoprazole 40 Mg Tablet PO 40 mg Q48H TEZ Administration Tamsulosin HCl 0.4 mg 01/22/23 21:00 Tamsulosin 0.4 Mg Cap.Er.24h PO HS [facility] Intake and Output 01/21/23 01/22/23 01/22/23 22:59 06:59 14:59 Intake Total 250 Balance 250 Intake: Oral 250 Other: Voiding Method Toilet # Voids 2 Weight 98.883 kg 01/21/23 17:48 01/21/23 17:48
[2023-01-22 12:34] LABS: Chol/HDL Ratio 2.51 Ratio; LDL Cholesterol,Calculated 56.9 mg/dL (0.0-131.0); VLDL Calculation 13.96 mg/dL (5.00-40.00)
[2023-01-22 14:23] VITALS: BP 121/71; PULSE 46; TEMP 97.4
--- NOTE | 2023-01-22 14:51 | CT ---
EXAMINATION TYPE: CT abdomen pelvis wo con DATE OF EXAM: 01/22/2023 COMPARISON: 06/28/2022 HISTORY: abdominal pain and bloating, hx of multiple bowel resections CT DLP: 916 mGycm Examination of the solid and hollow viscera is limited given the lack of contrast. FINDINGS: LUNG BASES: No evidence for nodule. No evidence for infiltrate. LIVER/GB: The gallbladder is unremarkable. No space-occupying hepatic lesion. PANCREAS: No pancreatic mass identified. No inflammatory process seen. SPLEEN: No evidence for splenomegaly. No intrasplenic lesions seen. ADRENALS: No adrenal nodules identified. No evidence for thickening. KIDNEYS: No evidence for renal mass. No nephrolithiasis. No hydronephrosis. Bladder distention measur ing 25.3 cm craniocaudal dimension by 10.3 cm AP dimension. There appears to be posterior bladder div erticulum. BOWEL: Appendix has a normal appearance. No evidence of bowel obstruction. No inflammatory process. Lymph nodes: No evidence for adenopathy greater than 1 cm. Abdominal aorta: Atheromatous changes seen. No evidence for aneurysm. Genital organs: No significant abnormality. Other: No significant abnormality. IMPRESSION: 1. Severe urinary bladder distention which may reflect bladder outlet obstruction or neuropathic blad wisam. Correlate clinically.
--- NOTE | 2023-01-22 14:55 | CA ---
Transthoracic Echo Report Name: Roderick Hernandez Age: 62 Gender: M : 1960 Exam Date: 01/22/2023 09:06 Exam Location: [facility] Ht (in): 69 Wt (lb): 218 Ordering Physician: Anusha Olivo Attending/Referring Phys: [id number], Geovani Tennis Coach Neil Brady Procedure CPT: Indications: LV function, CP Cardiac Hx: Technical Quality: Fair Contrast 1: Total Dose (mL): Contrast 2: Total Dose (mL): MEASUREMENTS (Male / Female) Normal Values 2D ECHO LV Diastolic Diameter PLAX 4.7 cm 4.2 - 5.9 / 3.9 - 5.3 cm LV Systolic Diameter PLAX 2.6 cm IVS Diastolic Thickness 0.7 cm 0.6 - 1.0 / 0.6 - 0.9 cm LVPW Diastolic Thickness 1.0 cm 0.6 - 1.0 / 0.6 - 0.9 cm LV Relative Wall Thickness 0.4 RV Internal Dim ED PLAX 2.6 cm LVOT Diameter 2.0 cm Aortic Root Diameter 3.2 cm LA Systolic Diameter LX 3.3 cm 3.0 - 4.0 / 2.7 - 3.8 cm LV Diastolic Volume MOD BP 60.3 cm??? 67 - 155 / 56 - 104 cm??? LV Systolic Volume MOD BP 19.8 cm??? 22 - 58 / 19 - 49 cm??? LV Ejection Fraction MOD BP 67.1 % >= 55 % LV Diastolic Volume MOD 4C 83.6 cm??? LV Systolic Volume MOD 4C 30.1 cm??? LV Ejection Fraction MOD 4C 64.1 % LV Diastolic Length 4C 7.2 cm LV Systolic Length 4C 6.0 cm LV Diastolic Volume MOD 2C 41.6 cm??? LV Systolic Volume MOD 2C 12.2 cm??? LV Ejection Fraction MOD 2C 70.6 % LV Diastolic Length 2C 6.8 cm LV Systolic Length 2C 5.6 cm LA Volume 43.9 cm??? 18 - 58 / 22 - 52 cm??? Ascending Aorta Diameter 3.2 cm DOPPLER AV Peak Velocity 118.6 cm/s AV Peak Gradient 5.6 mmHg LVOT Peak Velocity 118.5 cm/s LVOT Peak Gradient 5.6 mmHg AV Area Cont Eq pk 3.1 cm??? MV Peak Velocity 114.0 cm/s MV Peak Gradient 5.2 mmHg MV Mean Velocity 38.4 cm/s MV Mean Gradient 0.9 mmHg MV Velocity Time Integral 47.3 cm MR Peak Velocity 411.0 cm/s MR Peak Gradient 67.6 mmHg Mitral E Point Velocity 99.9 cm/s Mitral A Point Velocity 61.6 cm/s Mitral E to A Ratio 1.6 MV Deceleration Time 300.2 ms MV E' Velocity 10.1 cm/s Mitral E to MV E' Ratio 9.9 TR Peak Velocity 227.9 cm/s TR Peak Gradient 20.8 mmHg Right Ventricular Systolic Press 25.9 mmHg PV Peak Velocity 114.0 cm/s PV Peak Gradient 5.2 mmHg FINDINGS Left Ventricle Normal LV size. Normal LV wall thickness. No obvious regional wall motion abnormality. Left ventricular ejection fraction is estimated at 55-60 %. Right Ventricle Normal right ventricular size. RVSP estimated at 30 mmhg. Right Atrium Normal right atrial size. Left Atrium Normal left atrial size. Mitral Valve Structurally normal mitral valve. Mild MR. Aortic Valve Trileaflet aortic valve. No aortic valve stenosis or regurgitation. Tricuspid Valve Structurally normal tricuspid valve. Mild to moderate TR. Pulmonic Valve Mild pulmonic regurgitation. Pericardium Normal pericardium. Aorta Normal size aortic root and proximal ascending aorta. CONCLUSIONS Normal LV size, wall thickness and normal systolic function. LVEF estimated at 60% No obvious regional wall motion abnormality. Normal diastolic filling pattern Normal chamber size Mild pulmonic and tricuspid regurgitation. RVSP estimated at 30 mmHg No prior echocardiogram to compare with Previewed by: Henry Epperson MD Dr Anubhav Jain (Electronically Signed) Final Date: 22 January 2023 14:54
[2023-01-22] MEDS ORDERED: HEPARIN SODIUM,PORCINE/PF 5,000 UNIT/0.5 ML SYRINGE SQ SCH (16:00)
[2023-01-22] MEDS ORDERED: TAMSULOSIN 0.4 MG CAP.ER.24H PO SCH (21:00)
--- NOTE | 2023-02-18 23:44 | P.HPIM ---
History of Present Illness H&P Date: 01/22/23 Chief Complaint: chest pain Patient is a 62-year-old male with medical history of coronary disease status post CABG, prior history of cardiac catheterization, history of DC, peripheral vascular disease with stents to right SFA., Rheumatoid arthritis, obstructive sleep apnea and history of bowel resection, anxiety presents to ER with complaints of chest pain. Patient states that over the weekend he was walking to his coffee table when he suddenly started having chest pain mainly in the mid retrosternal region. Patient felt sharp pain lasted about 2 to 3 seconds and t hen went away. Patient did have another episode on Sunday morning around 4:30 AM while he was watching television. Patient felt having sweating at the time. Episode lasted for about few seconds and went away without any intervention. Otherwise currently denies any complaints of chest pain or shortness of breath. Patient is also having burping and mild abdominal discomfort mainly in the lower region. Denies any complaints of nausea or vomiting or diarrhea. Denies any recent unusual food intake. Patient does take alcohol 2-3 times per week. EKG showed sinus rhythm with no ST-T wave changes. Chest x-ray showed no acute cardiopulmonary process. Laboratory data showed WBC 5.2 hemoglobin 14.4 and platelets 177 Sodium 142 potassium 4.4 chloride 107 bicarb is 29 BUN 16 and creatinine 1.0 and blood sugar is 797. Troponin x3 negative. Review of Systems Constitutional: Patient denies any fever or chills . no Generalized weakness. Abdomen: Patient denied any nausea or vomiting. Patient does complain of abdominal pain all over. Cardiovascular: Patient denies any chest pain or short of breath no palpitations. Respiratory: patient denied any cough . no sputum production. No shortness of breath Neurologic: Patient denied any numbness or tingling headache. Musculoskeletal: Patient denies any complaints of joint swelling or deformity. Skin: Negative Psychiatric: Negative Endocrine: No heat or cold intolerance. No recent weight gain. Genitourinary: No dysuria or hematuria. All other 14 point ROS negative except the above Past Medical History Past Medical History: Coronary Artery Disease (CAD), GERD/Reflux, Myocardial Infarction (DC), Rheumatoid Arthritis (RA), Sleep Apnea/CPAP/BIPAP, Vascular Disorder Additional Past Medical History / Comment(s): incisional hernia,gout, DC x 3, varicose veins Last Myocardial Infarction Date:: 09/2014 History of Any Multi-Drug Resistant Organisms: None Reported Past Surgical History: Appendectomy, Bowel Resection, Coronary Bypass/CABG, Heart Catheterization, Hernia Repair Additional Past Surgical History / Comment(s): ABD. AORTOGRAM WITH MACKENZIE RUNOFF 01/07/16,Bilateral eye surgery for lazy eyes, CABG 08/2014 -4 vessel,02-01-17 stent to rt sfa Past Anesthesia/Blood Transfusion Reactions: Motion Sickness Additional Past Anesthesia/Blood Transfusion Reaction / Comment(s): unknown if had blood transfusion in past Past Psychological History: Anxiety Smoking Status: Never smoker Past Alcohol Use History: Occasional Past Drug Use History: None Reported - Past Family History Sister(s) Family Medical History: Cancer Additional Family Medical History / Comment(s): Patient has one sister with history of colon cancer Father Family Medical History: Cancer Additional Family Medical History / Comment(s): Father dad at age 73 with throat CA, heart problems, smoked and drank. Mother Family Medical History: Dementia Additional Family Medical History / Comment(s): Mother is alive at age 84 with history of atrial fibrillation, coronary artery disease, dementia, hypertension. Brother(s) Family Medical History: Pulmonary Embolus Additional Family Medical History / Comment(s): Patient has 2 brothers and one from Marfan's and one has diabetes. Medications and Allergies Home Medications Medication Instructions Recorded Confirmed Type RX: ALPRAZolam [Xanax] 0.125 mg PO BID 08/11/14 01/21/23 History RX: allopurinoL [Zyloprim] 300 mg PO DAILY tab 08/16/14 01/21/23 Rx RX: Clopidogrel [Plavix] 75 mg PO DAILY #90 tab 02/03/16 01/21/23 Rx RX: Tofacitinib Citrate [Xeljanz 11 mg PO DAILY 05/29/17 01/21/23 History Xr] RX: Aspirin EC [Ecotrin Low Dose] 81 mg PO DAILY #30 tablet. 06/06/17 01/21/23 Rx RX: Alfuzosin HCl [Alfuzosin HCl 10 mg PO HS 06/28/22 01/21/23 History ER] RX: Atorvastatin [Lipitor] 20 mg PO HS 06/28/22 01/21/23 History RX: Finasteride [Proscar] 5 mg PO DAILY 06/28/22 01/21/23 History RX: carvediloL [Coreg] 3.125 mg PO BID 06/28/22 01/21/23 History Folate 1333 Mcg Tabs 1,333 mcg PO DAILY 01/21/23 01/21/23 History RX: Hydroxychloroquine Sulfate 200 mg PO BID 01/21/23 01/21/23 History [Plaquenil] RX: Losartan Potassium [Cozaar] 12.5 mg PO DAILY 01/21/23 01/21/23 History RX: Pantoprazole [Protonix] 40 mg PO Q48H 01/21/23 01/21/23 History Allergies Allergy/AdvReac Type Severity Reaction Status Date / Time No Known Allergies Allergy Verified 01/21/23 20:41 Physical Exam Vitals: Vital Signs Temp Pulse Pulse Resp BP BP BP 01/22/23 08:55 01/22/23 07:20 98.1 F 55 L 16 134/86 01/22/23 02:13 98.2 F 87 16 104/67 01/21/23 20:45 98.5 F 56 L 16 135/83 01/21/23 20:29 148/78 01/21/23 19:53 56 L 20 153/85 01/21/23 17:27 56 L 16 176/94 01/21/23 17:23 98.2 F 64 18 150/86 Pulse Ox 01/22/23 08:55 99 01/22/23 07:20 99 01/22/23 02:13 99 01/21/23 20:45 96 01/21/23 20:29 98 01/21/23 19:53 100 01/21/23 17:27 99 01/21/23 17:23 95 Intake and Output 01/21/23 01/22/23 01/22/23 22:59 06:59 14:59 Intake Total 250 Balance 250 Intake: Oral 250 Other: Voiding Method Toilet # Voids 2 Weight 98.883 kg PHYSICAL EXAMINATION: Patient is lying in the bed comfortably, no acute distress, awake alert and oriented.. HEENT: Normocephalic. Neck is supple. Pupils reactive. Nostrils clear. Oral cavity is moist. Neck reveals no JVD, carotid bruits, or thyromegaly. CHEST EXAMINATION: Trachea is central. Symmetrical expansion. Lung alcantar clear to auscultation and percussion. CARDIAC: Normal S1, S2 with no gallops. No murmurs ABDOMEN: Soft. Bowel sounds present. Diffuse abdominal tenderness. Mild. No guarding or rigidity. . No organomegaly. No abdominal bruits. Extremities: reveal no edema. No clubbing or cyanosis Neurologically awake, alert, oriented x3 with well-coordinated movements. No focal deficits noted Skin: No rash or skin lesions. Psychiatric: Coperative. Nonsuicidal, Musculoskeletal: No joint swelling or deformity. Normal range of motion. Results CBC & Chem 7: 01/21/23 17:48 01/21/23 17:48 Thrombosis Risk Factor Assmnt - DVT/VTE Prophylaxis DVT/VTE Prophylaxis: Pharmacologic Prophylaxis ordered - Choose All That Apply Any of the Below Risk Factors Present?: Yes Each Factor Represents 1 point: Obesity (BMI >25) Other Risk Factors: Yes Each Risk Factor Represents 2 Points: Age 61-74 years Thrombosis Risk Factor Assessment Total Risk Factor Score: 3 Thrombosis Risk Factor Assessment Level: Moderate Risk Assessment and Plan Assessment: Chest pain. Atypical. Troponin x3 negative. Ruled out ACS Abdominal discomfort/pain Coronary artery disease history of CABG in 2012 Peripheral vascular with previous history of left FSA stent placement Pulmonary arteries Obstructive sleep apnea on CPAP at home Hypertension Hyperlipidemia DVT prophylaxis heparin subcu Plan: Patient will be continued on telemetry monitoring. Serial EKG and troponin x3 negative. Patient has stress test in January 2022 which was negative for ischemia. Cardiology recommends no intervention at this time. CT of the abdomen pelvis was ordered for further evaluation. Continue to follow closely. Time with Patient: Greater than 30
--- NOTE | 2023-02-18 23:48 | P.DS ---
Providers Date of admission: 01/21/23 19:03 Expected date of discharge: 01/22/23 Attending physician: Nando Mathew Consults: 01/21/23 19:23 Consult Physician Urgent Consulting Provider: [facility] Reason/Comments: chest pain Do you want consulting provider notified?: Yes Primary care physician: [facility] Course: Discharge diagnosis Chest pain. Atypical. Troponin x3 negative. Ruled out ACS Abdominal discomfort/pain Severe urinary bladder distention/bladder outlet obstruction. Resolved now. Coronary artery disease history of CABG in 2012 Peripheral vascular with previous history of left FSA stent placement Pulmonary arteries Obstructive sleep apnea on CPAP at home Hypertension Hyperlipidemia DVT prophylaxis heparin subcu Hospital course Patient is a 62-year-old male with medical history of coronary disease status post CABG, prior history of cardiac catheterization, history of KS, peripheral vascular disease with stents to right SFA., Rheumatoid arthritis, obstructive sleep apnea and history of bowel resection, anxiety presents to ER with complaints of chest pain. Patient states that over the weekend he was walking to his coffee table when he suddenly started having chest pain mainly in the mid retrosternal region. Patient felt sharp pain lasted about 2 to 3 seconds and then went away. Patient did have another episode on Sunday morning around 4:30 AM while he was watching television. Patient felt having sweating at the time. Episode lasted for about few seconds and went away without any intervention. Otherwise currently denies any complaints of chest pain or shortness of breath. Patient is also having burping and mild abdominal discomfort mainly in the lower region. Denies any complaints of nausea or vomiting or diarrhea. Denies any recent unusual food intake. Patient does take alcohol 2-3 times per week. EKG showed sinus rhythm with no ST-T wave changes. Chest x-ray showed no acute cardiopulmonary process. Laboratory data showed WBC 5.2 hemoglobin 14.4 and platelets 177 Sodium 142 potassium 4.4 chloride 107 bicarb is 29 BUN 16 and creatinine 1.0 and blood sugar is 797. Troponin x3 negative. Patient was continued on telemetry monitoring. Serial EKG and troponin x3 negative. Patient has stress test in January 2022 which was negative for ischemia. Cardiology recommends no intervention at this time. CT of the abdomen pelvis was ordered for further evaluation. Patient underwent CT of the abdomen pelvis showed severe urinary bladder distention which may reflect bladder outlet obstruction or neuropathic bladder. Correlate clinically. Patient is supposed to follow-up with urology as an outpatient. Continue with finasteride. Patient underwent spontaneous micturition and repeat bladder scan showed 285 mils. Abdominal pain is more scheduled now. And patient would like to be discharged home. Recommend to follow with primary care physician and urology as an outpatient. Discharge visit was done and vitals reviewed. Patient Condition at Discharge: Good Plan - Discharge Summary New Discharge Prescriptions: Continue RX: ALPRAZolam [Xanax] 0.125 mg PO BID RX: allopurinoL [Zyloprim] 300 mg PO DAILY tab RX: Clopidogrel [Plavix] 75 mg PO DAILY #90 tab RX: Tofacitinib Citrate [Xeljanz Xr] 11 mg PO DAILY RX: Aspirin EC [Ecotrin Low Dose] 81 mg PO DAILY #30 tablet. RX: Finasteride [Proscar] 5 mg PO DAILY RX: carvediloL [Coreg] 3.125 mg PO BID RX: Alfuzosin HCl [Alfuzosin HCl ER] 10 mg PO HS RX: Atorvastatin [Lipitor] 20 mg PO HS RX: Hydroxychloroquine Sulfate [Plaquenil] 200 mg PO BID Folate 1333 Mcg Tabs 1,333 mcg PO DAILY RX: Pantoprazole [Protonix] 40 mg PO Q48H RX: Losartan Potassium [Cozaar] 12.5 mg PO DAILY Discharge Medication List RX: ALPRAZolam [Xanax] 0.125 mg PO BID 08/11/14 [History] RX: allopurinoL [Zyloprim] 300 mg PO DAILY tab 08/16/14 [Rx] RX: Clopidogrel [Plavix] 75 mg PO DAILY #90 tab 02/03/16 [Rx] RX: Tofacitinib Citrate [Xeljanz Xr] 11 mg PO DAILY 05/29/17 [History] RX: Aspirin EC [Ecotrin Low Dose] 81 mg PO DAILY #30 tablet. 06/06/17 [Rx] RX: Alfuzosin HCl [Alfuzosin HCl ER] 10 mg PO HS 06/28/22 [History] RX: Atorvastatin [Lipitor] 20 mg PO HS 06/28/22 [History] RX: Finasteride [Proscar] 5 mg PO DAILY 06/28/22 [History] RX: carvediloL [Coreg] 3.125 mg PO BID 06/28/22 [History] Folate 1333 Mcg Tabs 1,333 mcg PO DAILY 01/21/23 [History] RX: Hydroxychloroquine Sulfate [Plaquenil] 200 mg PO BID 01/21/23 [History] RX: Losartan Potassium [Cozaar] 12.5 mg PO DAILY 01/21/23 [History] RX: Pantoprazole [Protonix] 40 mg PO Q48H 01/21/23 [History] Follow up Appointment(s)/Referral(s): Scotty Cadena MD [STAFF PHYSICIAN] - 01/26/23 3:00 pm (Appointment made at the main office ) Eusebio Moreno MD [STAFF PHYSICIAN] - 1 Week Jean Claude Hernández MD [Primary Care Provider] - 1-2 days Patient Instructions/Handouts: Chest Pain (DC) Discharge Disposition: HOME SELF-CARE
== END 2023-01-22 17:43 | disposition home or self-care (01) ==
LOC: EC 17:21 → 6NMEDSUR 19:03
PROVIDERS: ADMIT Internal Medicine; ATTEND Internal Medicine
DX: R07.89 Other chest pain (principal); N32.0 Bladder-neck obstruction; I08.1 Rheumatic disorders of both mitral and tricuspid valves; I25.810 Atherosclerosis of coronary artery bypass graft(s) without angina pectoris; G47.33 Obstructive sleep apnea (adult) (pediatric); I73.9 Peripheral vascular disease, unspecified; E78.5 Hyperlipidemia, unspecified; I10 Essential (primary) hypertension; R10.9 Unspecified abdominal pain; N32.89 Other specified disorders of bladder; K21.9 Gastro-esophageal reflux disease without esophagitis; M06.9 Rheumatoid arthritis, unspecified; R61 Generalized hyperhidrosis; R06.02 Shortness of breath; M10.9 Gout, unspecified; I83.90 Asymptomatic varicose veins of unspecified lower extremity; E66.9 Obesity, unspecified; Z68.32 Body mass index [BMI] 32.0-32.9, adult; I25.2 Old myocardial infarction; F41.9 Anxiety disorder, unspecified; Z79.02 Long term (current) use of antithrombotics/antiplatelets; Z79.82 Long term (current) use of aspirin; Z79.899 Other long term (current) drug therapy; Z95.1 Presence of aortocoronary bypass graft; Z90.49 Acquired absence of other specified parts of digestive tract; Z95.828 Presence of other vascular implants and grafts; Z86.69 Personal history of other diseases of the nervous system and sense organs; Z98.890 Other specified postprocedural states; Z80.8 Family history of malignant neoplasm of other organs or systems; Z82.49 Family history of ischemic heart disease and other diseases of the circulatory system; Z80.0 Family history of malignant neoplasm of digestive organs; Z81.2 Family history of tobacco abuse and dependence; Z82.0 Family history of epilepsy and other diseases of the nervous system; Z83.3 Family history of diabetes mellitus; Z82.79 Family history of other congenital malformations, deformations and chromosomal abnormalities
CPT/HCPCS: 99285; 36415; 94760; 93005; 93306; 80061; 80053; 83735; 84484; 85025; 85610; 85730; 71046; 74176; G0378 ×2; S0138

== ENCOUNTER 2024-01-23 11:23 | Day surgery (SDC) | payer BC ==
[2024-01-22 10:19] VITALS: BMI 32.5
[2024-01-23] MEDS: IV FLUID CONTINUATION 1,000 ML IV ONE (12:12)
[2024-01-23] MEDS: LACTATED RINGERS 1,000 ML IV SCH (12:12)
[2024-01-23] MEDS ORDERED: PROPOFOL 10 MG/ML 20 ML VIAL IV ONE (12:43)
--- NOTE | 2024-01-23 13:06 | P.PCN ---
Date of Procedure: 01/23/24 Procedure(s) Performed: BRIEF HISTORY: Patient is a 63-year-old pleasant white male scheduled for an elective colonoscopy as a part of screening for colon cancer. His sister was diagnosed with colon cancer at age 55. PROCEDURE PERFORMED: Colonoscopy with snare polypectomy. PREOPERATIVE DIAGNOSIS: Screening for colon cancer/screening for colon cancer. IV sedation per Anesthesia. PROCEDURE: After informed consent was obtained, the patient, was brought into the endoscopy unit. IV sedation was administered by Anesthesia under continuous monitoring. Digital rectal examination was normal. Initially the Olympus CF-160 flexible video colonoscope was then inserted in the rectum, gradually advanced i nto the cecum without any difficulty. Careful examination was performed as the scope was gradually being withdrawn. Ileocecal valve and the appendiceal orifice were visualized and appeared normal. Prep was excellent. Mucosa of the cecum, appeared normal. Descending colon there was a 5 mm polyp that was removed by cold snare polypectomy. In the hepatic flexure there was a 7 mm polyp that was removed by cold snare polypectomy. Rest of the ascending colon, transverse colon, descending colon, sigmoid colon, and rectum appeared normal. In the proximal rectum there was a 8 mm polyp that was removed by cold snare polypectomy. Retroflexion was performed in the rectum and no lesions were seen. The patient tolerated the procedure well. IMPRESSION: 5 mm ascending colon polyp status post snare polypectomy 7 mm hepatic flexure polyp status post polypectomy 8 mm proximal rectal polyp status post polypectomy RECOMMENDATIONS: Findings of this examination were discussed with the patient as well as his family. He was advised to follow-up with the biopsy results. If the biopsy was adenoma he can have repeat colonoscopy 3 years..
[2024-01-23 13:21] VITALS: BP 121/73; PULSE 54; RESP 17
== END 2024-01-23 13:39 | disposition home or self-care (01) ==
LOC: ORWHC2ENDO 11:23
PROVIDERS: ATTEND Internal Medicine Gastroenterology
DX: Z12.11 Encounter for screening for malignant neoplasm of colon (principal); D12.2 Benign neoplasm of ascending colon; D12.3 Benign neoplasm of transverse colon; K62.1 Rectal polyp; I25.10 Atherosclerotic heart disease of native coronary artery without angina pectoris; E78.5 Hyperlipidemia, unspecified; G47.33 Obstructive sleep apnea (adult) (pediatric); M06.9 Rheumatoid arthritis, unspecified; F41.9 Anxiety disorder, unspecified; K21.9 Gastro-esophageal reflux disease without esophagitis; Z79.02 Long term (current) use of antithrombotics/antiplatelets; Z80.0 Family history of malignant neoplasm of digestive organs; Z79.899 Other long term (current) drug therapy
CPT/HCPCS: 88305; 45385; J2704

== ENCOUNTER → 2024-01-24 | Outpatient (CLI) | payer BC ==
--- NOTE | 2024-01-24 16:19 | CT ---
EXAMINATION TYPE: CT abdomen wo con DATE OF EXAM: 01/24/2024 COMPARISON: 01/22/2023 HISTORY: generalized abd pain [address] DLP: 716 mGycm Examination of the solid and hollow viscera is limited given the lack of contrast. Unenhanced CT of t he abdomen was performed. Lack of intravenous contrast limits evaluation. FINDINGS: LUNG BASES: No evidence for nodule. No evidence for infiltrate. LIVER/GB: The gallbladder is unremarkable. No space-occupying hepatic lesion. PANCREAS: No pancreatic mass identified. No inflammatory process seen. SPLEEN: No evidence for splenomegaly. No intrasplenic lesions seen. ADRENALS: No adrenal nodules identified. No evidence for thickening. KIDNEYS: No evidence for renal mass. No nephrolithiasis. No hydronephrosis. BOWEL: Visualized bowel loops are of normal caliber. Lymph nodes: No evidence for adenopathy greater than 1 cm. Abdominal aorta: Atheromatous changes seen. Infrarenal abdominal aortic aneurysm measuring 3.8 cm AP dimension. Renal vascular calcifications seen on the left. Other: No significant abnormality. IMPRESSION: 1. No distinct abnormality to account for the patient's symptoms. 2. Abdominal aortic aneurysm with slight progression since prior study with measurement of 3.3 cm pre viously.
== END | disposition home or self-care (01) ==
LOC: RADCTMAIN 15:00
PROVIDERS: ATTEND Internal Medicine Geriatric Medicine
DX: R10.9 Unspecified abdominal pain (principal)
CPT/HCPCS: 74150

== ENCOUNTER → 2024-01-31 | Outpatient (CLI) | payer BC ==
--- NOTE | 2024-01-31 07:45 | US ---
EXAMINATION TYPE: US duplex aorta DATE OF EXAM: 01/31/2024 COMPARISON: NONE CLINICAL INDICATION: Male, 63 years old with history of I71.40 AAA WO RUPTURE M54.9 BACK PAIN; AAA TECHNIQUE: Multiple sonographic images of the abdominal aorta are obtained. FINDINGS: EXAM MEASUREMENTS: Abdominal Aorta: Proximal: obscured Mid: 1.8 x 2.2cm Distal: 3.6 x 4.1cm Bifurcation: Right Iliac: 1.0 x 1.0cm Left Iliac: 1.1 x 1.0cm MANAGER OF FINANCIAL REPORTING NOTES: Technical limitations due to large amount of overlying bowel gas. Proximal obscu red. Distal AAA IMPRESSION: Distal abdominal aortic aneurysm as noted.
--- NOTE | 2024-01-31 11:23 | MR ---
EXAMINATION TYPE: MR lumbar spine wo con DATE OF EXAM: 01/31/2024 COMPARISON: None HISTORY: Pelvic/ abdominal pain, low back pain. TECHNIQUE: Multiplanar, multisequence images of the lumbar spine were acquired without IV contrast. Findings: The lumbar vertebral segments are normal in height and alignment and there is no fracture or subluxat ion. There is mild disc space narrowing, circumferential disc bulge and loss of signal intensity at L4-5 a nd L5-S1 levels consistent with mild degenerative disc disease. There is no lumbar disc protrusion or herniation. The lumbar spinal canal is widely patent and there is no central canal stenosis. Secondary to circumferential disc bulge in mild disc space narrowing, there is moderate to severe vipul roforaminal stenosis at the L5-S1 level on the left and moderate neural foraminal stenosis at the L5- S1 level on the right. There is mild neuroforaminal stenosis at L4-5 bilaterally. There is mild facet degeneration at the L4-5 and L5-S1 levels. The visualized sacrum and SI joints are normal. The paraspinal soft tissues are unremarkable. IMPRESSION: 1. Lumbar spine normal in height and alignment. 2. Mild degenerative disc disease at the L4-5 and L5-S1 levels. 3. No lumbar disc herniation or central canal stenosis. 4. Neural foraminal stenosis at the L4-5 and L5-S1 levels as described above.
== END | disposition home or self-care (01) ==
LOC: RADUSWWP 06:54
PROVIDERS: ATTEND Internal Medicine Geriatric Medicine
DX: M51.37 Other intervertebral disc degeneration, lumbosacral region (principal); M48.061 Spinal stenosis, lumbar region without neurogenic claudication; I71.40 Abdominal aortic aneurysm, without rupture, unspecified
CPT/HCPCS: 72148; 93979